=== PATIENT | male | born 1955 | race Caucasian/White ===

== ENCOUNTER 2019-12-05 16:50 | Emergency (ER) | payer OTHER ==
[~2019-12-05] VITALS: Ht 162.6 cm; Wt 79.4 kg
[2019-12-05] MEDS ORDERED: WARF4 PO (19:06)
== END 2019-12-05 19:08 | disposition home or self-care (01) ==
LOC: ER 16:50
DX: N99.89 Other postprocedural complications and disorders of genitourinary system (principal)
CPT/HCPCS: 36415; 99283

== ENCOUNTER 2019-12-09 23:27 | Emergency (ER) | payer OTHER ==
[~2019-12-09] VITALS: Ht 162.6 cm; Wt 77.1 kg
[~2019-12-09 23:27] MED LIST: WARF4 PO
[2019-12-09] MEDS ORDERED: INSULANPEN SC (23:37)
[2019-12-09] MEDS ORDERED: LIRA0.6P SC (23:38)
[2019-12-09] MEDS ORDERED: Novolin R100 UNIT/M SC (23:38)
[2019-12-09] MEDS ORDERED: CLOP75 PO (23:41)
[2019-12-09] MEDS ORDERED: CLOBET30L TOP (23:41)
[2019-12-09] MEDS ORDERED: WARF2.5 PO (23:42)
[2019-12-09] MEDS ORDERED: PREG100 PO (23:43)
[2019-12-09] MEDS ORDERED: FURO40 PO (23:43)
[2019-12-09] MEDS ORDERED: ENAL10 PO (23:43)
[2019-12-09] MEDS ORDERED: POTA10T PO (23:43)
[2019-12-09] MEDS ORDERED: MIRALAX17 G1 PO (23:44)
[2019-12-09] MEDS ORDERED: METF500C PO (23:44)
[2019-12-09] MEDS ORDERED: CARV6.25 PO (23:45)
[2019-12-09] MEDS ORDERED: ATOR20 PO (23:45)
[2019-12-09] MEDS ORDERED: ACET325 PO (23:46)
[2019-12-09] MEDS ORDERED: CITA20 PO (23:46)
[2019-12-09] MEDS ORDERED: NITR.4SL SL (23:46)
== END 2019-12-10 01:30 | disposition home or self-care (01) ==
LOC: ER 23:27
DX: N48.5 Ulcer of penis (principal); Z88.8 Allergy status to other drugs, medicaments and biological substances; Z79.899 Other long term (current) drug therapy; Z79.4 Long term (current) use of insulin; Z79.01 Long term (current) use of anticoagulants; E11.9 Type 2 diabetes mellitus without complications; I10 Essential (primary) hypertension; F32.9 Major depressive disorder, single episode, unspecified
CPT/HCPCS: 99283

== ENCOUNTER 2019-12-20 18:23 | Emergency (ER) | payer OTHER ==
[~2019-12-20] VITALS: Ht 172.7 cm; Wt 81.7 kg
[~2019-12-20 18:23] MED LIST changes: +ACET325 PO; +ATOR20 PO; +CARV6.25 PO; +CITA20 PO; +CLOBET30L TOP; +CLOP75 PO; +ENAL10 PO; +FURO40 PO; +INSULANPEN SC; +LIRA0.6P SC; +METF500C PO; +MIRALAX17 G1 PO; +NITR.4SL SL; +Novolin R100 UNIT/M SC; +POTA10T PO; +PREG100 PO; +WARF2.5 PO
== END 2019-12-21 00:15 | disposition home or self-care (01) ==
LOC: ER 18:23
DX: R53.1 Weakness (principal); E11.9 Type 2 diabetes mellitus without complications; I10 Essential (primary) hypertension; F32.9 Major depressive disorder, single episode, unspecified; Z88.8 Allergy status to other drugs, medicaments and biological substances; Z79.4 Long term (current) use of insulin; Z79.899 Other long term (current) drug therapy; Z79.01 Long term (current) use of anticoagulants; Z79.84 Long term (current) use of oral hypoglycemic drugs; Z87.891 Personal history of nicotine dependence
CPT/HCPCS: 93005; 93010; 99284-25

== ENCOUNTER 2020-02-20 18:19 | Emergency (ER) | payer MEDICARE, OTHER ==
[~2020-02-20] VITALS: Ht 165.1 cm; Wt 72.6 kg
[~2020-02-20 18:19] MED LIST changes: -ACET325 PO; -ATOR20 PO; -CARV6.25 PO; -CITA20 PO; -CLOBET30L TOP; -CLOP75 PO; -ENAL10 PO; -FURO40 PO; -INSULANPEN SC; -LIRA0.6P SC; -METF500C PO; -MIRALAX17 G1 PO; -NITR.4SL SL; -Novolin R100 UNIT/M SC; -POTA10T PO; -PREG100 PO; -WARF2.5 PO
[2020-02-20 19:10] LABS: BASOPHILS ABSOLUTE AUTO 0.05 K/mm3 (0.00-0.23); BASOPHILS PERCENT AUTO 1 % (0-2); EOSINOPHILS ABSOLUTE AUTO 0.15 K/mm3 (0.00-0.68); EOSINOPHILS PERCENT AUTO 1 % (0-6); Hemoglobin 11.6 g/dL (13.5-17.5); IMMATURE GRAN ABSOLUTE AUTO 0.02 K/mm3 (0.00-0.10); IMMATURE GRAN PERCENT AUTO 0 % (0-1); LYMPHOCYTES ABSOLUTE AUTO 1.76 K/mm3 (0.84-5.20); LYMPHOCYTES PERCENT AUTO 17 % (21-46); MONOCYTES ABSOLUTE AUTO 0.86 K/mm3 (0.16-1.47); MONOCYTES PERCENT AUTO 8 % (4-13); Mean Corpuscular HGB 28.3 pg (26.0-34.0); Mean Corpuscular HGB Conc 32.2 g/dL (31.5-36.5); Mean Corpuscular Volume 88 fL (80-100); Mean Platelet Volume 10.4 fL (9.1-12.4); NEUTROPHILS ABSOLUTE AUTO 7.55 K/mm3 (1.96-9.15); NEUTROPHILS PERCENT AUTO 73 % (41-73); Platelet Count 395 K/mm3 (150-400); RDW Coefficient Variation 14.6 % (11.7-14.2); RDW Standard Deviation 47.1 fL (35.1-46.3); White Blood Cell Count 10.39 K/mm3 (4.00-11.30)
[2020-02-20 19:17] LABS: Source, Urine Catheter
[2020-02-20 19:19] LABS: Bilirubin, Urine Neg (Neg); Blood, Urine 3+ (Neg); Glucose Qualitative, Urine Neg (Neg); Ketones, Urine Neg (Neg); Leukocyte Esterase, Urine 3+ (Neg); Nitrite, Urine Pos (Neg); Protein, Urine 3+ (Neg); Specific Gravity, Urine 1.015 (1.003-1.022); Urobilinogen, Urine NORM (Normal)
[2020-02-20 19:23] LABS: Appearance, Urine Cloudy (Clear); Color, Urine Yellow (P-Yellow)
[2020-02-20 19:24] LABS: International Normalized Ratio 1.07; Prothrombin Time Results 11.4 Sec (9.7-11.5)
[2020-02-20 19:25] LABS: Bacteria Many /hpf; Squamous Epithelial Cells Few /hpf (Few); White Blood Cells, Urine TNTC /hpf (0-5)
[2020-02-20 19:35] LABS: Anion Gap 6 mmol/L (6-16); Blood Urea Nitrogen 16 mg/dL (8-24); Bun/Creatinine Ratio 21.3 (12.0-20.0); CO2, Blood 27 mmol/L (21-32); Calcium, Blood 9.4 mg/dL (8.5-10.1); Chloride, Blood 101 mmol/L (98-108); Creatinine, Blood 0.75 mg/dL (0.60-1.20); Glomerular Filtration Rate >60 (60-); Glucose, Blood 109 mg/dL (70-99); Potassium, Blood 4.5 mmol/L (3.5-5.5); Sodium, Blood 134 mmol/L (136-145); Troponin I <0.015 ng/mL (0.000-0.040)
[2020-02-20] MEDS ORDERED: CLOP75 PO (19:37)
[2020-02-20] MEDS ORDERED: ENAL10 PO (19:37)
[2020-02-20] MEDS ORDERED: FURO40 PO (19:37)
[2020-02-20] MEDS ORDERED: PREG100 PO (19:38)
[2020-02-20] MEDS ORDERED: POTA10T PO (19:38)
[2020-02-20] MEDS ORDERED: Metformin HCl1000 MG PO (19:39)
[2020-02-20] MEDS ORDERED: ATOR40TA PO (19:39)
[2020-02-20] MEDS ORDERED: CARV6.25 PO (19:40)
[2020-02-20] MEDS ORDERED: CITA20 PO (19:40)
[2020-02-20] MEDS ORDERED: WARF2.5 PO (19:42)
[2020-02-20] MEDS ORDERED: MIRALAX17 GM PO (19:43)
[2020-02-20] MEDS ORDERED: INSULANPEN SC (19:45)
[2020-02-20] MEDS ORDERED: LIRA0.6P SC (19:46)
[2020-02-20] MEDS ORDERED: NITR.4SL SL (19:46)
[2020-02-20] MEDS ORDERED: Humulin N100 UNIT/1 SC (19:46)
[2020-02-20] MEDS ORDERED: ACET325 PO (19:47)
[2020-02-20] MEDS ORDERED: Clotrimazole15 GM TOP (19:50)
[2020-02-20] MEDS ORDERED: LIDO5TO TOP (19:51)
[2020-02-20] MEDS ORDERED: CEFP200 PO (19:55)
== END 2020-02-20 21:00 | disposition home or self-care (01) ==
LOC: ER 18:19
PROVIDERS: Emergency Medicine
DX: N39.0 Urinary tract infection, site not specified (principal); I25.10 Atherosclerotic heart disease of native coronary artery without angina pectoris; I10 Essential (primary) hypertension; E78.5 Hyperlipidemia, unspecified; E11.9 Type 2 diabetes mellitus without complications; Z86.73 Personal history of transient ischemic attack (TIA), and cerebral infarction without residual deficits; Z79.899 Other long term (current) drug therapy; Z79.01 Long term (current) use of anticoagulants; Z79.4 Long term (current) use of insulin; Z79.02 Long term (current) use of antithrombotics/antiplatelets
CPT/HCPCS: 36415; 51702; 71045; 80048; 81001; 84484; 85025; 85610; 87086; 93005; 93010; 96365-59; 96375-59; 99285-25; J0696; J1170

== ENCOUNTER 2020-03-10 13:27 | Emergency (ER) | payer MEDICARE, OTHER ==
[~2020-03-10] VITALS: Ht 165.1 cm; Wt 63.5 kg
[~2020-03-10 13:27] MED LIST changes: +ACET325 PO; +ATOR40TA PO; +CARV6.25 PO; +CEFP200 PO; +CITA20 PO; +CLOP75 PO; +Clotrimazole15 GM TOP; +ENAL10 PO; +FURO40 PO; +Humulin N100 UNIT/1 SC; +INSULANPEN SC; +LIDO5TO TOP; +MIRALAX17 GM PO; +Metformin HCl1000 MG PO; +NITR.4SL SL; +POTA10T PO; +PREG100 PO; +WARF2.5 PO
[2020-03-10 14:14] LABS: BASOPHILS ABSOLUTE AUTO 0.06 K/mm3 (0.00-0.23); BASOPHILS PERCENT AUTO 1 % (0-2); EOSINOPHILS ABSOLUTE AUTO 0.14 K/mm3 (0.00-0.68); EOSINOPHILS PERCENT AUTO 1 % (0-6); Hematocrit 35.7 % (37.0-53.0); Hemoglobin 11.7 g/dL (13.5-17.5); IMMATURE GRAN ABSOLUTE AUTO 0.03 K/mm3 (0.00-0.10); IMMATURE GRAN PERCENT AUTO 0 % (0-1); LYMPHOCYTES ABSOLUTE AUTO 1.34 K/mm3 (0.84-5.20); LYMPHOCYTES PERCENT AUTO 10 % (21-46); MONOCYTES ABSOLUTE AUTO 1.21 K/mm3 (0.16-1.47); MONOCYTES PERCENT AUTO 9 % (4-13); Mean Corpuscular HGB 29.4 pg (26.0-34.0); Mean Corpuscular HGB Conc 32.8 g/dL (31.5-36.5); Mean Corpuscular Volume 90 fL (80-100); Mean Platelet Volume 10.4 fL (9.1-12.4); NEUTROPHILS ABSOLUTE AUTO 10.55 K/mm3 (1.96-9.15); NEUTROPHILS PERCENT AUTO 79 % (41-73); Platelet Count 386 K/mm3 (150-400); RDW Coefficient Variation 14.5 % (11.7-14.2); RDW Standard Deviation 47.6 fL (35.1-46.3); Red Blood Cell Count 3.98 M/mm3 (4.30-5.90); White Blood Cell Count 13.33 K/mm3 (4.00-11.30)
[2020-03-10 14:29] LABS: International Normalized Ratio 1.04; Prothrombin Time Results 11.1 Sec (9.7-11.5)
[2020-03-10 14:32] LABS: Alanine Aminotransfer (ALT/SGP 30 U/L (12-78); Albumin, Blood 3.7 g/dL (3.4-5.0); Albumin/Globulin Ratio 0.9 (0.8-1.8); Alk Phos 123 U/L (50-136); Anion Gap 8 mmol/L (6-16); Aspartate Aminotrans (AST/SGOT 21 U/L (12-37); Bilirubin, Total 0.4 mg/dL (0.1-1.0); Blood Urea Nitrogen 25 mg/dL (8-24); Bun/Creatinine Ratio 29.1 (12.0-20.0); CO2, Blood 27 mmol/L (21-32); Calcium, Blood 9.3 mg/dL (8.5-10.1); Chloride, Blood 100 mmol/L (98-108); Creatinine, Blood 0.86 mg/dL (0.60-1.20); Globulin, Blood 4.1 g/dL (2.2-4.0); Glomerular Filtration Rate >60 (60-); Glucose, Blood 126 mg/dL (70-99); Potassium, Blood 4.5 mmol/L (3.5-5.5); Sodium, Blood 135 mmol/L (136-145); Total Protein, Blood 7.8 g/dL (6.4-8.2)
[2020-03-10 15:14] LABS: Source, Urine Catheter
[2020-03-10 15:16] LABS: Bilirubin, Urine Neg (Neg); Blood, Urine 5+ (Neg); Glucose Qualitative, Urine Neg (Neg); Ketones, Urine Neg (Neg); Leukocyte Esterase, Urine 3+ (Neg); Nitrite, Urine Neg (Neg); Protein, Urine 2+ (Neg); Urobilinogen, Urine NORM (Normal)
[2020-03-10 15:20] LABS: Appearance, Urine Hazy (Clear); Color, Urine Yellow (P-Yellow)
[2020-03-10 15:22] LABS: Bacteria Mod /hpf; Mucus Light (0-Heavy); Red Blood Cells, Urine 50-100 /hpf (0-2); Squamous Epithelial Cells Few /hpf (Few)
[2020-03-10] MEDS ORDERED: KEFLEX500 MG PO (15:44)
== END 2020-03-10 16:08 | disposition home or self-care (01) ==
LOC: ER 13:27
PROVIDERS: Emergency Medicine
DX: N39.0 Urinary tract infection, site not specified (principal); T83.091A Other mechanical complication of indwelling urethral catheter, initial encounter; I25.10 Atherosclerotic heart disease of native coronary artery without angina pectoris; I10 Essential (primary) hypertension; E78.5 Hyperlipidemia, unspecified; E11.9 Type 2 diabetes mellitus without complications; F32.9 Major depressive disorder, single episode, unspecified; Z88.8 Allergy status to other drugs, medicaments and biological substances; Z79.899 Other long term (current) drug therapy; Z79.4 Long term (current) use of insulin; Z79.01 Long term (current) use of anticoagulants; Z87.891 Personal history of nicotine dependence
CPT/HCPCS: 36415; 51702; 80053; 81001; 85025; 85610; 87077; 87086; 87186; 96360-59; 99283-25; J7030

== ENCOUNTER 2020-03-12 08:15 | Observation (INO) | payer MEDICARE, OTHER ==
[~2020-03-12] VITALS: Ht 162.6 cm; Wt 64.7 kg
[~2020-03-12 08:15] MED LIST changes: +KEFLEX500 MG PO
[2020-03-12] MEDS ORDERED: CLOP75 PO (08:53)
[2020-03-12 09:26] LABS: BASOPHILS ABSOLUTE AUTO 0.04 K/mm3 (0.00-0.23); BASOPHILS PERCENT AUTO 1 % (0-2); EOSINOPHILS ABSOLUTE AUTO 0.14 K/mm3 (0.00-0.68); EOSINOPHILS PERCENT AUTO 2 % (0-6); Hematocrit 33.9 % (37.0-53.0); Hemoglobin 10.9 g/dL (13.5-17.5); IMMATURE GRAN ABSOLUTE AUTO 0.03 K/mm3 (0.00-0.10); IMMATURE GRAN PERCENT AUTO 0 % (0-1); LYMPHOCYTES PERCENT AUTO 18 % (21-46); MONOCYTES ABSOLUTE AUTO 0.79 K/mm3 (0.16-1.47); MONOCYTES PERCENT AUTO 9 % (4-13); Mean Corpuscular HGB 29.1 pg (26.0-34.0); Mean Corpuscular HGB Conc 32.2 g/dL (31.5-36.5); Mean Corpuscular Volume 91 fL (80-100); Mean Platelet Volume 10.3 fL (9.1-12.4); NEUTROPHILS PERCENT AUTO 71 % (41-73); Platelet Count 348 K/mm3 (150-400); RDW Coefficient Variation 14.6 % (11.7-14.2); RDW Standard Deviation 48.7 fL (35.1-46.3); Red Blood Cell Count 3.74 M/mm3 (4.30-5.90)
[2020-03-12 09:40] LABS: International Normalized Ratio 1.03
[2020-03-12 09:51] LABS: Alanine Aminotransfer (ALT/SGP 24 U/L (12-78); Albumin, Blood 3.4 g/dL (3.4-5.0); Albumin/Globulin Ratio 0.9 (0.8-1.8); Alk Phos 112 U/L (50-136); Anion Gap 6 mmol/L (6-16); Aspartate Aminotrans (AST/SGOT 19 U/L (12-37); Bilirubin, Total 0.5 mg/dL (0.1-1.0); Blood Urea Nitrogen 17 mg/dL (8-24); Bun/Creatinine Ratio 20.9 (12.0-20.0); CO2, Blood 27 mmol/L (21-32); Calcium, Blood 9.2 mg/dL (8.5-10.1); Chloride, Blood 104 mmol/L (98-108); Creatinine, Blood 0.81 mg/dL (0.60-1.20); Globulin, Blood 3.8 g/dL (2.2-4.0); Glomerular Filtration Rate >60 (60-); Glucose, Blood 81 mg/dL (70-99); Potassium, Blood 3.9 mmol/L (3.5-5.5); Sodium, Blood 137 mmol/L (136-145); Total Protein, Blood 7.2 g/dL (6.4-8.2)
[2020-03-12] MEDS ORDERED: LIRA0.6P SC (12:25)
[2020-03-12] MEDS ORDERED: CEPH500 PO (12:42)
[2020-03-12 15:41] LABS: Source, Urine Catheter
[2020-03-12 15:43] LABS: Bilirubin, Urine Neg (Neg); Blood, Urine 5+ (Neg); Glucose Qualitative, Urine Neg (Neg); Ketones, Urine Neg (Neg); Leukocyte Esterase, Urine 3+ (Neg); Nitrite, Urine Neg (Neg); Protein, Urine 3+ (Neg); Urobilinogen, Urine NORM (Normal)
[2020-03-12 15:59] LABS: Appearance, Urine Cloudy (Clear); Color, Urine Yellow (P-Yellow)
[2020-03-12 16:08] LABS: Red Blood Cells, Urine 25-50 /hpf (0-2); White Blood Cells, Urine 25-50 /hpf (0-5)
[2020-03-12 16:09] LABS: Bacteria Mod /hpf; Squamous Epithelial Cells Not Seen /hpf (Few)
--- NOTE | 2020-03-12 17:05 | NUR ---
MILLER CATHETER IN PLACE AT ADMISSION. EDUCATED PT THAT CATHETER NEEDED TO BE CHANGED PER POLICY AND UA SENT; VERBALIZED UNDERSTANDING AND GAVE VERBAL PERMISSION TO PROCEED. IS AWARE OF PROCEDURE. DOMO KLEIN I REMOVED 9 ML OF STERILE WATER FROM BALLOON AND REMOVED CATHETER WITHOUT INCIDENT. URINE IS CLOUDY YELLOW. THIS AUTHOR PLACED NEW 16 FR MILLER CATHETER IN STERILE FASHION WITHOUT INCIDENT, RECEIVED ~ 10 ML OF CLOUDY YELLOW URINE WHICH WAS SENT FOR A UA PER POLICY. MILLER SECURED WITH STAT-LOCK. PT TOLERATED WELL.
--- NOTE | 2020-03-12 18:02 | NUR ---
SHIFT SUMMARY: ASSUMED CARE OF PT UPON HIS ARRIVAL FROM ED AT 1240. ADMISSION ASSESSMENT COMPLETED. DENIES PAIN. NO S/S OF BLEEDING NOTED. A&O X 1, DOES NOT KNOW LOCATION OR DAY/DATE. LIVES AT [facility]. LUNGS CTAB, ON ROOM AIR. HAS NUMEROUS SCATTERED SCABS AND ABRASIONS ON ARMS AND LEGS. MILLER CATHETER CHANGED AND UA SENT. HAS FLAT AFFECT, POOR DENTITION, IS IGIUGIG. PLAN IS POSSIBLE D/C TOMORROW.
--- NOTE | 2020-03-13 02:20 | NUR ---
SHIFT SUMMARY PT WITH DX OF GI BLEED ASSISTED ON AND OFF THE COMMODE - NO NOTED S/S BLEEDING MILLER IN PLACE, VOICED LEAKAGE, PT WAS NOTED TO BE PULLING ON IT, INSTRUCTED NOT TO PULL ON FLOEY. MILLER REPOSITIONED AND IS DRAINING WELL. YELLOW URINF. AWAKE AT INTERVALS, PUSHING CALL LIGHT, BUT DENIED NEEDING ANYTHING WHEN STAFF CAME IN TO CHECK HIM. CALL LIGHT IN REACH. WILL CONTINUE TO ASSESS.
[2020-03-13 05:22] LABS: BASOPHILS ABSOLUTE AUTO 0.05 K/mm3 (0.00-0.23); BASOPHILS PERCENT AUTO 1 % (0-2); EOSINOPHILS ABSOLUTE AUTO 0.19 K/mm3 (0.00-0.68); EOSINOPHILS PERCENT AUTO 3 % (0-6); Hematocrit 33.8 % (37.0-53.0); IMMATURE GRAN ABSOLUTE AUTO 0.02 K/mm3 (0.00-0.10); IMMATURE GRAN PERCENT AUTO 0 % (0-1); LYMPHOCYTES ABSOLUTE AUTO 1.48 K/mm3 (0.84-5.20); LYMPHOCYTES PERCENT AUTO 20 % (21-46); MONOCYTES PERCENT AUTO 10 % (4-13); Mean Corpuscular HGB 29.3 pg (26.0-34.0); Mean Corpuscular HGB Conc 32.5 g/dL (31.5-36.5); Mean Corpuscular Volume 90 fL (80-100); Mean Platelet Volume 10.4 fL (9.1-12.4); NEUTROPHILS ABSOLUTE AUTO 4.87 K/mm3 (1.96-9.15); NEUTROPHILS PERCENT AUTO 67 % (41-73); Platelet Count 370 K/mm3 (150-400); RDW Coefficient Variation 14.4 % (11.7-14.2); RDW Standard Deviation 48.1 fL (35.1-46.3); Red Blood Cell Count 3.75 M/mm3 (4.30-5.90); White Blood Cell Count 7.31 K/mm3 (4.00-11.30)
[2020-03-13 05:44] LABS: Anion Gap 8 mmol/L (6-16); Blood Urea Nitrogen 13 mg/dL (8-24); Bun/Creatinine Ratio 17.6 (12.0-20.0); CO2, Blood 26 mmol/L (21-32); Calcium, Blood 9.2 mg/dL (8.5-10.1); Chloride, Blood 105 mmol/L (98-108); Creatinine, Blood 0.74 mg/dL (0.60-1.20); Free Thyroxine 1.14 ng/dL (0.70-1.60); Glomerular Filtration Rate >60 (60-); Glucose, Blood 95 mg/dL (70-99); Sodium, Blood 139 mmol/L (136-145)
[2020-03-13] MEDS ORDERED: ASPI81CH PO (10:55)
[2020-03-13] MEDS ORDERED: INSULANPEN SC (10:56)
--- NOTE | 2020-03-13 14:24 | NUR ---
PT DISCHARGED PT DISCHARGED WITH NO ACUTE CHANGES IN ASSESSMENT. DC PAPERWORK & INSTRUCTIONS SENT WITH PT IN BELONGING BAG. PT TRANSPORTED VIA WHEELCHAIR AND DRIVEN BACK TO [facility] VIA WHEELCHAIR VAN.
== END 2020-03-13 14:23 | disposition home or self-care (01) ==
LOC: ER 08:15 → MEDS 08:16 → ENPENDDIS 03-13 09:00 → MEDS 03-13 14:23
PROVIDERS: Emergency Medicine; ADMIT Internal Medicine
DX: G92 Toxic encephalopathy (principal); D64.9 Anemia, unspecified; F03.90 Unspecified dementia, unspecified severity, without behavioral disturbance, psychotic disturbance, mood disturbance, and anxiety; F32.9 Major depressive disorder, single episode, unspecified; I10 Essential (primary) hypertension; E11.9 Type 2 diabetes mellitus without complications; I25.10 Atherosclerotic heart disease of native coronary artery without angina pectoris; Z95.1 Presence of aortocoronary bypass graft; E78.5 Hyperlipidemia, unspecified; G62.9 Polyneuropathy, unspecified; Z95.2 Presence of prosthetic heart valve; Z79.899 Other long term (current) drug therapy; Z79.82 Long term (current) use of aspirin
CPT/HCPCS: 36415; 51702; 70450; 71045; 80048; 80053; 81001; 82947; 84439; 84443; 84481; 85025; 85610; 93005; 93010; 96361; 96374; 99285-25; A9270-GY; C9113; G0378; J7030

== ENCOUNTER 2020-03-15 12:41 | Emergency (ER) | payer MEDICARE, OTHER ==
[~2020-03-15] VITALS: Ht 172.7 cm; Wt 56.7 kg
[~2020-03-15 12:41] MED LIST changes: +ASPI81CH PO; +CEPH500 PO; +LIRA0.6P SC
== END 2020-03-15 15:35 | disposition home or self-care (01) ==
LOC: ER 12:41
DX: S09.90XA Unspecified injury of head, initial encounter (principal); S80.02XA Contusion of left knee, initial encounter; S40.011A Contusion of right shoulder, initial encounter; E11.9 Type 2 diabetes mellitus without complications; I10 Essential (primary) hypertension; F32.9 Major depressive disorder, single episode, unspecified; Z79.899 Other long term (current) drug therapy; Z79.82 Long term (current) use of aspirin; Z79.4 Long term (current) use of insulin; V94.0XXA Hitting object or bottom of body of water due to fall from watercraft, initial encounter
CPT/HCPCS: 70450; 72125; 73562-LT; 99284-25; A9270

== ENCOUNTER 2020-03-17 17:12 | Emergency (ER) | payer MEDICARE, OTHER ==
[~2020-03-17] VITALS: Ht 170.2 cm; Wt 77.1 kg
[2020-03-17 18:21] LABS: Source, Urine Catheter
[2020-03-17 18:28] LABS: Bilirubin, Urine Neg (Neg); Blood, Urine 4+ (Neg); Glucose Qualitative, Urine Neg (Neg); Ketones, Urine Neg (Neg); Leukocyte Esterase, Urine 3+ (Neg); Nitrite, Urine Neg (Neg); Protein, Urine 2+ (Neg); Urobilinogen, Urine NORM (Normal)
[2020-03-17 18:34] LABS: Appearance, Urine Hazy (Clear); Color, Urine Yellow (P-Yellow)
[2020-03-17 18:35] LABS: White Blood Cells, Urine TNTC /hpf (0-5)
[2020-03-17 18:36] LABS: Bacteria Many /hpf; Squamous Epithelial Cells Not Seen /hpf (Few)
== END 2020-03-17 19:08 | disposition home or self-care (01) ==
LOC: ER 17:12
PROVIDERS: Emergency Medicine
DX: T83.031A Leakage of indwelling urethral catheter, initial encounter (principal); R33.9 Retention of urine, unspecified; I25.10 Atherosclerotic heart disease of native coronary artery without angina pectoris; I10 Essential (primary) hypertension; E78.5 Hyperlipidemia, unspecified; E11.9 Type 2 diabetes mellitus without complications; F32.9 Major depressive disorder, single episode, unspecified; Z88.8 Allergy status to other drugs, medicaments and biological substances; Z79.899 Other long term (current) drug therapy; Z79.82 Long term (current) use of aspirin; Z79.4 Long term (current) use of insulin; Z86.73 Personal history of transient ischemic attack (TIA), and cerebral infarction without residual deficits; Z87.891 Personal history of nicotine dependence
CPT/HCPCS: 51702; 81001; 87077; 87086; 87186; 99283-25

== ENCOUNTER 2020-05-16 00:30 | Emergency (ER) | payer OTHER ==
[~2020-05-16] VITALS: Ht 162.6 cm; Wt 81.7 kg
[2020-05-16 01:24] LABS: Source, Urine Catheter
[2020-05-16 01:36] LABS: Bilirubin, Urine Neg (Neg); Blood, Urine 5+ (Neg); Glucose Qualitative, Urine Neg (Neg); Ketones, Urine Neg (Neg); Leukocyte Esterase, Urine 3+ (Neg); Nitrite, Urine Neg (Neg); Protein, Urine 2+ (Neg); Urobilinogen, Urine NORM (Normal)
[2020-05-16 01:40] LABS: Color, Urine Pale Yellow (P-Yellow)
[2020-05-16 01:41] LABS: Appearance, Urine Hazy (Clear)
[2020-05-16 01:42] LABS: Bacteria Mod /hpf; Red Blood Cells, Urine 50-100 /hpf (0-2); Squamous Epithelial Cells Not Seen /hpf (Few); White Blood Cells, Urine TNTC /hpf (0-5)
[2020-05-16 01:43] LABS: Amorphous Heavy (0-Heavy)
[2020-05-16] MEDS ORDERED: CEFP200 PO (01:51)
[2020-05-20] MEDS ORDERED: LEVO750 PO (13:44)
[2020-05-20] MEDS ORDERED: PENVK500 PO (13:45)
[2020-05-20] MEDS ORDERED: CEFP200 PO (13:46)
[2020-05-20] MEDS ORDERED: DOCU100 PO (15:33)
[2020-05-20] MEDS ORDERED: Adult Glycerin1 EACH PR (15:33)
== END 2020-05-16 02:22 | disposition home or self-care (01) ==
LOC: ER 00:30
PROVIDERS: Emergency Medicine
DX: N39.0 Urinary tract infection, site not specified (principal); Z88.8 Allergy status to other drugs, medicaments and biological substances; Z79.82 Long term (current) use of aspirin; Z79.4 Long term (current) use of insulin; Z79.2 Long term (current) use of antibiotics; Z79.899 Other long term (current) drug therapy
CPT/HCPCS: 51702; 81001; 87077; 87086; 87186; 99284-25; A9270-GY

== ENCOUNTER 2020-05-28 16:52 | Emergency (ER) | payer OTHER ==
[~2020-05-28] VITALS: Ht 162.6 cm; Wt 65.8 kg
[~2020-05-28 16:52] MED LIST changes: +Adult Glycerin1 EACH PR; +DOCU100 PO; +LEVO750 PO; +PENVK500 PO
[2020-05-28 18:26] LABS: BASOPHILS ABSOLUTE AUTO 0.05 K/mm3 (0.00-0.23); BASOPHILS PERCENT AUTO 1 % (0-2); EOSINOPHILS PERCENT AUTO 2 % (0-6); Hematocrit 37.3 % (37.0-53.0); Hemoglobin 11.9 g/dL (13.5-17.5); IMMATURE GRAN ABSOLUTE AUTO 0.02 K/mm3 (0.00-0.10); IMMATURE GRAN PERCENT AUTO 0 % (0-1); LYMPHOCYTES ABSOLUTE AUTO 1.86 K/mm3 (0.84-5.20); LYMPHOCYTES PERCENT AUTO 21 % (21-46); MONOCYTES ABSOLUTE AUTO 0.84 K/mm3 (0.16-1.47); MONOCYTES PERCENT AUTO 9 % (4-13); Mean Corpuscular HGB 29.8 pg (26.0-34.0); Mean Corpuscular HGB Conc 31.9 g/dL (31.5-36.5); Mean Corpuscular Volume 94 fL (80-100); Mean Platelet Volume 11.1 fL (9.1-12.4); NEUTROPHILS ABSOLUTE AUTO 5.96 K/mm3 (1.96-9.15); NEUTROPHILS PERCENT AUTO 67 % (41-73); Platelet Count 292 K/mm3 (150-400); RDW Coefficient Variation 12.1 % (11.7-14.2); RDW Standard Deviation 42.1 fL (35.1-46.3); Red Blood Cell Count 3.99 M/mm3 (4.30-5.90); White Blood Cell Count 8.93 K/mm3 (4.00-11.30)
[2020-05-28 18:55] LABS: Alanine Aminotransfer (ALT/SGP 21 U/L (12-78); Albumin, Blood 3.7 g/dL (3.4-5.0); Albumin/Globulin Ratio 0.9 (0.8-1.8); Alk Phos 104 U/L (50-136); Anion Gap 4 mmol/L (6-16); Aspartate Aminotrans (AST/SGOT 14 U/L (12-37); Bilirubin, Total 0.1 mg/dL (0.1-1.0); Blood Urea Nitrogen 27 mg/dL (8-24); Bun/Creatinine Ratio 33.5 (12.0-20.0); CO2, Blood 24 mmol/L (21-32); Calcium, Blood 9.3 mg/dL (8.5-10.1); Chloride, Blood 106 mmol/L (98-108); Creatinine, Blood 0.81 mg/dL (0.60-1.20); Globulin, Blood 3.9 g/dL (2.2-4.0); Glomerular Filtration Rate >60 (60-); Glucose, Blood 152 mg/dL (70-99); Potassium, Blood 4.9 mmol/L (3.5-5.5); Sodium, Blood 134 mmol/L (136-145); Total Protein, Blood 7.6 g/dL (6.4-8.2)
[2020-05-28 23:32] LABS: Source, Urine Catheter
[2020-05-28 23:48] LABS: Bilirubin, Urine Neg (Neg); Blood, Urine 4+ (Neg); Glucose Qualitative, Urine Neg (Neg); Ketones, Urine Neg (Neg); Leukocyte Esterase, Urine 3+ (Neg); Nitrite, Urine Neg (Neg); Protein, Urine 2+ (Neg); Urobilinogen, Urine NORM (Normal)
[2020-05-28 23:49] LABS: Appearance, Urine Clear (Clear); Color, Urine Yellow (P-Yellow)
[2020-05-28 23:50] LABS: Amorphous Light (0-Heavy); Bacteria Many /hpf; Squamous Epithelial Cells Not Seen /hpf (Few)
[2020-05-29] MEDS ORDERED: LEVO750 PO (00:03)
[2020-05-29] MEDS ORDERED: Veetids 500500 MG PO (00:03)
== END 2020-05-29 00:36 | disposition home or self-care (01) ==
LOC: ER 16:52
PROVIDERS: Physician Assistant
DX: N39.0 Urinary tract infection, site not specified (principal); Z88.8 Allergy status to other drugs, medicaments and biological substances; Z79.899 Other long term (current) drug therapy; Z79.82 Long term (current) use of aspirin; Z79.4 Long term (current) use of insulin; E11.9 Type 2 diabetes mellitus without complications; I10 Essential (primary) hypertension; F32.9 Major depressive disorder, single episode, unspecified; Z87.891 Personal history of nicotine dependence
CPT/HCPCS: 80053; 81001; 85025; 87077; 87086; 87186; 99283

== ENCOUNTER 2020-06-14 15:33 | Emergency (ER) | payer OTHER ==
[~2020-06-14] VITALS: Ht 162.6 cm; Wt 81.7 kg
[~2020-06-14 15:33] MED LIST changes: +Veetids 500500 MG PO
[2020-06-14 17:03] LABS: Source, Urine Catheter
[2020-06-14 17:37] LABS: Bilirubin, Urine Neg (Neg); Blood, Urine 5+ (Neg); Glucose Qualitative, Urine 4+ (Neg); Ketones, Urine Neg (Neg); Leukocyte Esterase, Urine 2+ (Neg); Nitrite, Urine Neg (Neg); Protein, Urine Neg (Neg); Specific Gravity, Urine 1.015 (1.003-1.022); Urobilinogen, Urine NORM (Normal)
[2020-06-14 17:42] LABS: Appearance, Urine Hazy (Clear); Color, Urine Yellow (P-Yellow)
[2020-06-14 17:44] LABS: Red Blood Cells, Urine 50-100 /hpf (0-2); Squamous Epithelial Cells Not Seen /hpf (Few)
[2020-06-14 17:45] LABS: Bacteria Rare /hpf
== END 2020-06-14 17:10 | disposition home or self-care (01) ==
LOC: ER 15:33
PROVIDERS: Physician Assistant
DX: T83.028A Displacement of other urinary catheter, initial encounter (principal); E11.9 Type 2 diabetes mellitus without complications; I10 Essential (primary) hypertension; F32.9 Major depressive disorder, single episode, unspecified; Z88.8 Allergy status to other drugs, medicaments and biological substances; Z79.4 Long term (current) use of insulin; Z95.1 Presence of aortocoronary bypass graft; Z79.82 Long term (current) use of aspirin; Z79.899 Other long term (current) drug therapy
CPT/HCPCS: 51702; 81001; 87077; 87086; 87186; 99283-25

== ENCOUNTER 2020-06-20 15:46 | Emergency (ER) | payer OTHER ==
[~2020-06-20] VITALS: Ht 162.6 cm; Wt 63.5 kg
== END 2020-06-20 22:35 | disposition home or self-care (01) ==
LOC: ER 15:46
DX: M54.9 Dorsalgia, unspecified (principal); I10 Essential (primary) hypertension; E78.5 Hyperlipidemia, unspecified; E11.9 Type 2 diabetes mellitus without complications; I25.810 Atherosclerosis of coronary artery bypass graft(s) without angina pectoris; Z88.8 Allergy status to other drugs, medicaments and biological substances; Z79.01 Long term (current) use of anticoagulants; Z86.73 Personal history of transient ischemic attack (TIA), and cerebral infarction without residual deficits; Z95.1 Presence of aortocoronary bypass graft; Z79.899 Other long term (current) drug therapy; Z79.82 Long term (current) use of aspirin; Z87.891 Personal history of nicotine dependence; W06.XXXA Fall from bed, initial encounter
CPT/HCPCS: 72100; 99283-25

== ENCOUNTER 2020-07-02 18:18 | Inpatient (IN) | payer OTHER ==
[~2020-07-02] VITALS: Ht 160 cm; Wt 66.6 kg
[~2020-07-02 18:18] MED LIST changes: -ASPI81CH PO; +Aspirin EC81 MG PO; +BASAGLAR K100 UNIT/1 SC
[2020-07-02 18:46] LABS: BASOPHILS ABSOLUTE AUTO 0.02 K/mm3 (0.00-0.23); BASOPHILS PERCENT AUTO 0 % (0-2); EOSINOPHILS PERCENT AUTO 0 % (0-6); Hematocrit 30.1 % (37.0-53.0); IMMATURE GRAN ABSOLUTE AUTO 0.02 K/mm3 (0.00-0.10); IMMATURE GRAN PERCENT AUTO 0 % (0-1); LYMPHOCYTES ABSOLUTE AUTO 0.27 K/mm3 (0.84-5.20); LYMPHOCYTES PERCENT AUTO 4 % (21-46); MONOCYTES ABSOLUTE AUTO 0.13 K/mm3 (0.16-1.47); MONOCYTES PERCENT AUTO 2 % (4-13); Mean Corpuscular HGB 30.1 pg (26.0-34.0); Mean Corpuscular HGB Conc 33.2 g/dL (31.5-36.5); Mean Corpuscular Volume 91 fL (80-100); Mean Platelet Volume 10.5 fL (9.1-12.4); NEUTROPHILS ABSOLUTE AUTO 5.81 K/mm3 (1.96-9.15); NEUTROPHILS PERCENT AUTO 93 % (41-73); Platelet Count 202 K/mm3 (150-400); RDW Coefficient Variation 12.3 % (11.7-14.2); RDW Standard Deviation 40.6 fL (35.1-46.3); Red Blood Cell Count 3.32 M/mm3 (4.30-5.90); White Blood Cell Count 6.25 K/mm3 (4.00-11.30)
[2020-07-02 18:57] LABS: Source, Urine Catheter
[2020-07-02 19:18] LABS: Appearance, Urine Hazy (Clear); Bilirubin, Urine Neg (Neg); Blood, Urine 5+ (Neg); Color, Urine Yellow (P-Yellow); Glucose Qualitative, Urine 2+ (Neg); Ketones, Urine Neg (Neg); Leukocyte Esterase, Urine 3+ (Neg); Nitrite, Urine Pos (Neg); Protein, Urine 3+ (Neg); Urobilinogen, Urine NORM (Normal)
[2020-07-02 19:24] LABS: Magnesium, Blood 1.9 mg/dL (1.6-2.4)
[2020-07-02 19:26] LABS: Alanine Aminotransfer (ALT/SGP 28 U/L (12-78); Albumin/Globulin Ratio 0.9 (0.8-1.8); Alk Phos 107 U/L (50-136); Anion Gap 7 mmol/L (6-16); Aspartate Aminotrans (AST/SGOT 23 U/L (12-37); Bilirubin, Total 0.4 mg/dL (0.1-1.0); Blood Urea Nitrogen 34 mg/dL (8-24); Bun/Creatinine Ratio 33.7 (12.0-20.0); CO2, Blood 21 mmol/L (21-32); Calcium, Blood 8.2 mg/dL (8.5-10.1); Chloride, Blood 109 mmol/L (98-108); Creatinine, Blood 1.01 mg/dL (0.60-1.20); Globulin, Blood 3.3 g/dL (2.2-4.0); Glomerular Filtration Rate >60 (60-); Glucose, Blood 199 mg/dL (70-99); Potassium, Blood 4.8 mmol/L (3.5-5.5); Sodium, Blood 137 mmol/L (136-145); Total Protein, Blood 6.3 g/dL (6.4-8.2)
[2020-07-02 19:52] LABS: Bacteria Many /hpf; Red Blood Cells, Urine 25-50 /hpf (0-2); White Blood Cells, Urine 25-50 /hpf (0-5)
[2020-07-02 19:53] LABS: Squamous Epithelial Cells Not Seen /hpf (Few)
--- NOTE | 2020-07-02 23:36 | NUR ---
PT UP TO ICU 11 FROM ED VIA GURNEY. PT ALTERED, NOT FOLLOWING COMMANDS, ANSWERING QUESTIONS, IS UNABLE TO TELL ME HIS NAME AND . FEBRILE. TEMP IS 100.4. LUNG SOUNDS CLEAR AND SPO2 100% ON 2LNC. SBP IS IN THE 80S. HR IS IN 100S. ON LEVOPHED AT 2MCG. MILLER IN PLACE, DRIED BLOOD AROUND PENIS AND ON LEG. WHEN MILLER WAS REPLACED IN ED BALLOON WAS STILL PARTIALLY INFLATED. MILLER REPLACED. STILL BLEEDING A LITTLE BUT URINE IN BAG IS YELLOW. PT HAS 16G IN LFA AND 18G IN RFA. BOTH IVS ARE PATENT, GOT BLOOD RETURN AND FLUSHED WELL. LEVOPHED AND NS INFUSING IN RFA. SKIN IS CLEAR. COCCYX IS SLIGHTLY RED. PT CAME UP WITH A SMALL SMEAR BM. WILL CONTINUE TO MONITOR
[2020-07-02 23:55] LABS: U Amphetamine Screen Not Detected; U Barbituate Screen Not Detected; U Benzodiazapine Screen Not Detected; U Buprenorphine Screen Not Detected; U Cannabinoids Screen Not Detected; U Cocaine Screen Not Detected; U Methadone Screen Not Detected; U Methamphetamine Screen Not Detected; U Opiates Screen Not Detected; U Oxycodone Screen Not Detected; U Phencyclidine Screen Not Detected; U Propoxyphene Screen Not Detected
[2020-07-03 01:00] LABS: Adenovirus Not Detected (NOT DETECT); Bordetella pertussis Not Detected (NOT DETECT); Chlamydophila pneumoniae Not Detected (NOT DETECT); Coronavirus 229E Not Detected (NOT DETECT); Coronavirus HKU1 Not Detected (NOT DETECT); Coronavirus NL63 Not Detected (NOT DETECT); Coronavirus OC43 Not Detected (NOT DETECT); Human Metapneumovirus Not Detected (NOT DETECT); Human Rhinovirus/Enterovirus Not Detected (NOT DETECT); Influenza A/2009-H1 Not Detected (NOT DETECT); Influenza A/H1 Not Detected (NOT DETECT); Influenza A/H3 Not Detected (NOT DETECT); Influenza B Not Detected (NOT DETECT); Mycoplasma pneumoniae Not Detected (NOT DETECT); Parainfluenza Virus 1 Not Detected (NOT DETECT); Parainfluenza Virus 2 Not Detected (NOT DETECT); Parainfluenza Virus 3 Not Detected (NOT DETECT); Parainfluenza Virus 4 Not Detected (NOT DETECT); Respiratory Syncytial Virus Not Detected (NOT DETECT); SARS-Cov-2 (COVID-19), BioFire Not Detected (NOT DETECT)
--- NOTE | 2020-07-03 02:28 | NUR ---
R FA IV ASSESSED MULTIPLE TIMES. PATENT AND WAS DRAWING BACK WELL. CURRENTLY NO LONGER DRAWING BACK. SITE IS NOT RED OR SWOLLEN. WILL CONTINUE TO MONITOR
[2020-07-03 03:48] LABS: BASOPHILS ABSOLUTE AUTO 0.04 K/mm3 (0.00-0.23); BASOPHILS PERCENT AUTO 0 % (0-2); EOSINOPHILS PERCENT AUTO 0 % (0-6); Hematocrit 29.8 % (37.0-53.0); Hemoglobin 9.7 g/dL (13.5-17.5); IMMATURE GRAN PERCENT AUTO 1 % (0-1); LYMPHOCYTES ABSOLUTE AUTO 0.29 K/mm3 (0.84-5.20); LYMPHOCYTES PERCENT AUTO 2 % (21-46); MONOCYTES PERCENT AUTO 5 % (4-13); Mean Corpuscular HGB 30.5 pg (26.0-34.0); Mean Corpuscular HGB Conc 32.6 g/dL (31.5-36.5); Mean Corpuscular Volume 94 fL (80-100); NEUTROPHILS ABSOLUTE AUTO 13.95 K/mm3 (1.96-9.15); NEUTROPHILS PERCENT AUTO 93 % (41-73); Platelet Count 212 K/mm3 (150-400); RDW Coefficient Variation 12.7 % (11.7-14.2); RDW Standard Deviation 43.5 fL (35.1-46.3); Red Blood Cell Count 3.18 M/mm3 (4.30-5.90); White Blood Cell Count 15.08 K/mm3 (4.00-11.30)
[2020-07-03 04:09] LABS: Alanine Aminotransfer (ALT/SGP 69 U/L (12-78); Albumin, Blood 2.6 g/dL (3.4-5.0); Albumin/Globulin Ratio 0.8 (0.8-1.8); Alk Phos 129 U/L (50-136); Anion Gap 5 mmol/L (6-16); Aspartate Aminotrans (AST/SGOT 118 U/L (12-37); Bilirubin, Total 0.4 mg/dL (0.1-1.0); Blood Urea Nitrogen 31 mg/dL (8-24); Bun/Creatinine Ratio 27.7 (12.0-20.0); CO2, Blood 23 mmol/L (21-32); Calcium, Blood 8.1 mg/dL (8.5-10.1); Chloride, Blood 109 mmol/L (98-108); Creatinine, Blood 1.12 mg/dL (0.60-1.20); Globulin, Blood 3.3 g/dL (2.2-4.0); Glomerular Filtration Rate >60 (60-); Glucose, Blood 257 mg/dL (70-99); Potassium, Blood 5.2 mmol/L (3.5-5.5); Sodium, Blood 137 mmol/L (136-145); Total Protein, Blood 5.9 g/dL (6.4-8.2)
--- NOTE | 2020-07-03 05:40 | NUR ---
SHIFT SUMMARY: PT MENTATION BEGINNING TO IMPROVE. IS ABLE TO ANSWER BASIC QUESTIONS. AFEBRILE NOW. IS ABLE TO MOVE ALL 4 EXTREMETIES. IN SR WITH A 1ST DEGREE HB. SBP 90-110S. ON LEVOPHED AT 4 MCG. LUNG SOUNDS CLEAR. SPO2 >90% ON 2LNC. MILLER REMAINS IN PLACE, PATENT, AND DRAINING. NO LONGER ANY S/S OF BLEEDING FROM PENIS. PT DOES C/O IT BEING PAINFUL. (SEE PREVIOUS NN). 2 PIVS-16G LFA, 18G RFA. LEVOPHED AND NS INFUSING INTO LFA IV. R FA IV IS STILL PATENT. HOWEVER IT NO LONGER DRAWS BACK AND PT C/O OF SOME PAIN AT THE INSERTION SITE. NO REDNESS, NOT SWOLLEN, NO S/S OF INFILTRATION, HOWEVER STILL SWITCHED INFUSING SITE. LFA IV PATENT AND DRAWS BACK WELL-LEVOPHED AT 4MCG AND NS AT 100MLS/HR. WILL PASS REPORT TO ONCOMING SHIFT
--- NOTE | 2020-07-03 08:18 | NUR ---
UPDATED DR. WILLSON ON PATIENT STATUS. INFORMED THAT NPO AND NS AT 100 MLS X 2 L COMPLETE. INFORMED THAT NO HISTORY OF DM SEEN AND LANTUS ORDERED. LAST BS 257. ORDER TO DC LANTUS AND ORDER Q6H REGULAR SS INSULIN. ORDER FOR MAINTENANCE FLUIDS RECEIVED. INFORMED THAT PATIENT HAS NOT HAD HEAD CT. INFORMED THAT LEVOPHED INFUSING AT LOW RATE INTO PERIPHERAL IV- 16G AND BLOOD DRAWING BACK.
--- NOTE | 2020-07-03 08:42 | NUR ---
DR. WILLSON CAME TO SEE PATIENT. STATED IT WAS OKAY TO KEEP LOW DOSE LEVOPHED INFUSING INTO PERIPHERAL IV. ORDER FOR SWALLOW EVAL OBTAINED.
--- NOTE | 2020-07-03 09:02 | NUR ---
INITIAL ASSESSMENT PATIENT SLEEPING SOUNDLY IN BED UPON ENTERING ROOM. PATIENT RESPONDS TO VERBAL STIMULI. PATIENT HAS FLAT AFFECT. PATIENT CONFUSED. PATIENT DOES FOLLOW SOME VERY SIMPLE COMMANDS SUCH "OPEN YOUR MOUTH". PATIENT DOES SOMETIMES SAY "OK" WHEN NURSE EXPLAINING NURSING CARE. PATIENT KEEPS ARMS CONTRACTED AT CHEST BUT IS ABLE TO EXTEND THEM. PATIENT WEAK BUT ABLE TO MOVE ALL EXTREMITIES WEAKLY. BASELINE NEURO UNKNOWN. PATIENT DOES NOT HAVE ANY SIGNS OF PAIN OR DISCOMFORT. PATIENT AFEBRILE. PATIENT SATTING 90% AND GREATER ON RA. LUNGS CLEAR IN UPPER LOBES AND DIMINISHED IN LOWER LOBES. NO COUGH NOTED. PATIENT IN SR/ SB WITH FIRST DEGREE HB AND BBB. HR 50S TO 60S. BP STABLE ON LEVOPHED. DATE OF LAST BM UNKNOWN. MILLER IN PLACE, DRAINING YELLOW COLORED URINE. PATIENT HAS CHRONIC MILLER AT BASELINE. SMALL AMOUNT OF BLEEDING NOTED FROM URETHRA. CHANGES TO MEATUS FROM CHRONIC MILLER USE. COCCYX REDDENED. PATIENT BEING REPOSITIONED Q2H AND PRN. NS INFUSING AT 100 MLS/ HOUR. LEVOPHED INFUSING AT 6 MCG/ MINUTE. LEVOPHED INFUSING INTO 16 G IV IN L FA- IV IS DRAWING BACK BLOOD AND DR. WILLSON IS OKAY WITH USING PRESSOR IN PERIPHERAL SITE. PATIENT ON Q6H BS CHECKS. BS THIS AM OF 177; NO COVERAGE NEEDED OR GIVEN. PATIENT APPEARS COMFORTABLE AT THIS TIME. BED LOW, CALL LIGHT IN REACH. WILL CONTINUE TO MONITOR PATIENT FREQUENTLY THROUGHOUT SHIFT.
--- NOTE | 2020-07-03 10:07 | NUR ---
SPOKE TO RAMÍREZ GREER ABOUT PATIENT. RAMÍREZ GREER STAFF SAY THAT PATIENT IS CONFUSED AT BASELINE. THEY STATED THAT HE SOMETIMES KNOWS HIS NAME AND SOMETIMES DOESN'T. THEY STATE THAT HE RARELY FORMS SENTENCES AND USUALLY ONLY SPEAKS IN WORDS. THEY STATE THAT HE SOMETIMES PULLS AT HIS MILLER. THEY STATE THAT HE GETS AROUND IN A WHEELCHAIR AND HAS TO HAVE HELP TO TRANSFER IN AND OUT OF IT. THEY SAY THAT PATIENT SLEEPS ON A MATTRESS ON THE GROUND HE ALWAYS TRIES TO SCOOT OUT OF BED. THEY STATES THAT HE ASKS FOR HIS AND DAUGHTER A LOT. THEY STATE THAT HE WANDERS AROUND A LOT IN THE FACILITY WITH HIS WHEELCHAIR "TRYING TO ESCAPE". NURSE ASKED FOR MEDICATION LIST AND HISTORY TO BE FAXED TO [facility].
--- NOTE | 2020-07-03 12:00 | NUR ---
PATIENT NEURO STATUS HAS IMPROVED SOME. PATIENT NOT LETHARGIC THIS AM. PATIENT NOW MORE ALERT AND ABLE TO ANSWER SELF, TOWN THAT HE LIVES IN AND FOLLOWING SIMPLE COMMANDS. PATIENT HAS TEMP OF 99.3 DEGREES FAHRENHEIT. PATIENT REMAINS SATTING 90% AND GREATER ON RA. HR 50S TO 70S. BP STABLE ON LEVOPHED. LEVO CURRENTLY AT 3 MCG/ MINUTE. SPEECH ORDERED PUREE DIET. PATIENT TOLERATING WELL WITH FEEDING ASSISTANCE. BS 198; NO COVERAGE INDICATED. NO OTHER ACUTE CHANGES TO NOTE ON AT THIS TIME. WILL CONTINUE TO MONITOR.
[2020-07-03] MEDS ORDERED: ASPI81CH PO (13:05)
--- NOTE | 2020-07-03 15:06 | NUR ---
INFORMED DR. WILLSON THAT PATIENT'S MED REC UPDATED. INFORMED THAT PATIENT IS TOLERATING PUREE DIET WELL.
--- NOTE | 2020-07-03 16:16 | NUR ---
PATIENT RESTING QUIETLY IN BED, WATCHING TV. PATIENT HAS NO COMPLAINTS AT THIS TIME. PATIENT HAS TEMP OF 99.5 DEGREES FAHRENHEIT. LEVOPHED AT 1 MCG/ MINUTE. BS OF 178; COVERAGE GIVEN. NO OTHER ACUTE CHANGES TO NOTE ON AT THIS TIME. WILL CONTINUE TO MONITOR.
--- NOTE | 2020-07-03 17:13 | NUR ---
SHIFT SUMMARY PATIENT HAD A GOOD DAY TODAY. PATIENT NEURO STATUS HAS IMPROVED. PATIENT NOW STATING SENTENCES. PATIENT CONTINUES TO BE CONFUSED AND ONLY ALERT TO SELF AND THE TOWN HE LIVES IN. PATIENT IS FEEDING HIMSELF DINNER AT THIS TIME. PATIENT LESS LETHARGIC THAN THIS AM. PATIENT DID NOT HAVE ANY COMPLAINTS OF PAIN. PATIENT HAD TMAX OF 99.7 DEGREES FAHRENHEIT. PATIENT REMAINED SATTING 90% AND GREATER ON RA. PATIENT REMAINS IN FIRST DEGREE AV BLOCK AND BBB, HR 50S TO 70S. BP REMAINED STABLE ON LEVOPHED. LEVOPHED IS ON STANDBY AT THIS TIME. PATIENT DID NOT HAVE BM THIS SHIFT. PATIENT INCREASED FROM NPO TO PUREE THIS SHIFT AND REMAINS TOLERATING WELL. PATIENT HAD ADEQUATE AMOUNT OF YELLOW URINE OUT THIS SHIFT. NO CHANGE IN SKIN. PATIENT REPOSITIONED THROUGHOUT SHIFT. LEVOPHED ON SB AT THIS TIME. NS INFUSING AT 100 MLS/ HOUR. PATIENT HAS NO COMPLAINTS AT THIS TIME. BED LOW, CALL LIGHT IN REACH. REPORT WILL BE GIVEN TO ONCOMING PRODUCER ARBORIST MANAGER NURSE SHORTLY.
--- NOTE | 2020-07-03 20:39 | NUR ---
ASSUMED CARE: PT AWAKE IN BED. ANSWERS QUESTIONS. IS PLEASANT AND COOPERATIVE. MENTATION ROQUE HE IS AT BASELINE. FEBRILE AT 99.7-100. IN A 1ST HB. HR 50-70. SBP 120-140. LEVOPHED ON SB. SPO2 >90% ON RA. ON PUREED DIET AND THIN LIQUIDS. GAVE DIET PEPSI TONIGHT. DOING WELL WITH THAT. PT HAS MILLER IN PLACE. AT BASELINE PT HAS A CHRONIC MILLER. PG TO BRENDON AND 2 PIV IN LFA/RFA. PT HAS NS RUNNING AT 100MLS/HR. WILL CONTINUE TO MONITOR
--- NOTE | 2020-07-03 23:30 | NUR ---
pt c/o feeling nauseous. zofran given per mar. pt did end up vomiting. linens changed.
--- NOTE | 2020-07-04 01:59 | NUR ---
pt now has a weak cough and is having difficulties clearing secretions. lung sounds coarse in upper left. pt currently sitting upright, spo2 >90% on ra. will continue to monitor
[2020-07-04 04:22] LABS: BASOPHILS ABSOLUTE AUTO 0.03 K/mm3 (0.00-0.23); BASOPHILS PERCENT AUTO 0 % (0-2); EOSINOPHILS ABSOLUTE AUTO 0.01 K/mm3 (0.00-0.68); EOSINOPHILS PERCENT AUTO 0 % (0-6); Hematocrit 30.9 % (37.0-53.0); Hemoglobin 10.1 g/dL (13.5-17.5); IMMATURE GRAN ABSOLUTE AUTO 0.06 K/mm3 (0.00-0.10); IMMATURE GRAN PERCENT AUTO 1 % (0-1); LYMPHOCYTES ABSOLUTE AUTO 0.49 K/mm3 (0.84-5.20); LYMPHOCYTES PERCENT AUTO 6 % (21-46); MONOCYTES ABSOLUTE AUTO 0.73 K/mm3 (0.16-1.47); MONOCYTES PERCENT AUTO 9 % (4-13); Mean Corpuscular HGB 30.2 pg (26.0-34.0); Mean Corpuscular HGB Conc 32.7 g/dL (31.5-36.5); Mean Corpuscular Volume 93 fL (80-100); Mean Platelet Volume 11.8 fL (9.1-12.4); NEUTROPHILS ABSOLUTE AUTO 7.23 K/mm3 (1.96-9.15); NEUTROPHILS PERCENT AUTO 85 % (41-73); Platelet Count 189 K/mm3 (150-400); RDW Coefficient Variation 12.5 % (11.7-14.2); RDW Standard Deviation 42.5 fL (35.1-46.3); Red Blood Cell Count 3.34 M/mm3 (4.30-5.90); White Blood Cell Count 8.55 K/mm3 (4.00-11.30)
[2020-07-04 04:57] LABS: Alanine Aminotransfer (ALT/SGP 64 U/L (12-78); Albumin, Blood 2.6 g/dL (3.4-5.0); Albumin/Globulin Ratio 0.8 (0.8-1.8); Alk Phos 151 U/L (50-136); Anion Gap 5 mmol/L (6-16); Aspartate Aminotrans (AST/SGOT 88 U/L (12-37); Bilirubin, Total 0.3 mg/dL (0.1-1.0); Blood Urea Nitrogen 23 mg/dL (8-24); CO2, Blood 23 mmol/L (21-32); Calcium, Blood 8.3 mg/dL (8.5-10.1); Chloride, Blood 108 mmol/L (98-108); Creatinine, Blood 0.89 mg/dL (0.60-1.20); Globulin, Blood 3.4 g/dL (2.2-4.0); Glomerular Filtration Rate >60 (60-); Glucose, Blood 189 mg/dL (70-99); Magnesium, Blood 2.1 mg/dL (1.6-2.4); Potassium, Blood 4.3 mmol/L (3.5-5.5); Sodium, Blood 136 mmol/L (136-145)
--- NOTE | 2020-07-04 06:03 | NUR ---
SHIFT SUMMARY: NO ACUTE CHANGES T/O SHIFT. LEVOPHED REMAINS OFF. SBP/VSS STABLE. MENTATION IMPROVING. LUNG SOUNDS CLEAR NOW. PT WAS ABLE TO CLEAR SECRETIONS. HAD SEVERAL SMALL SMEARS DURING THE NIGHT. NO FORMED BMS. MILLER IN PLACE DRAINING CLEAR YELLOW URINE. WILL PASS REPORT TO ONCOMING RN
--- NOTE | 2020-07-04 08:00 | NUR ---
INITIAL ASSESSMENT PATIENT CONFUSED AT BASELINE. PATIENT ORIENTED TO SELF, THAT HE LIVES IN [place] AND TO FOLLOWING DIRECTIONS. PATIENT HAS FLAT AFFECT, CALM, COOPERATIVE. NO LEFT VS RIGHT SIDE DEFICITS NOTED. PATIENT HAS NO COMPLAINTS OF PAIN AT THIS TIME. PATIENT HAS TEMP OF 100.2 DEGREES FAHRENHEIT. PATIENT SATTING 90% AND GREATER ON RA. PATIENT IN FIRST DEGREE HB AND BBB, HR 70S TO 80S. SBP 150S TO 160S. DATE OF ACTUAL LAST BM UNKNOWN. PATIENT HAD A COUPLE OF SMEARS FOR RECONCILIATION CLERK PER NOC RN. MILLER IN PLACE DRAINING YELLOW COLORED URINE. PATIENT HAS CHRONIC MILLER AT HOME. SCANT OLD BLOOD NOTED AT URETHRA. PATIENT HAS CHANGES TO MEATUS FROM CHRONIC MILLER USE. COCCYX REDDENED. PATIENT HAS BEEN REPOSITIONING OWN HIPS. NS TKO. BLOOD SUGAR OF 256 THIS AM; COVERAGE GIVEN. BED LOW, CALL LIGHT IN REACH, BED ALARM ON. WILL CONTINUE TO MONITOR PATIENT FREQUENTLY THROUGHOUT SHIFT.
--- NOTE | 2020-07-04 09:52 | NUR ---
DR. WILLSON CALLED AND INFORMED THAT PATIENT NAUSEAOUS AND VOMITED LAST NIGHT AND ALSO THIS AM. EMESIS DARK BROWN/ MAROON IN COLOR. GOWN LEFT ON COUNTER FOR DR. WILLSON TO SEE AND SHE VERIFIED THAT SHE DID. DOCTOR INFORMED OF HS TMAX OF 100.2 DEGREES FAHRENHEIT. NO ORDER RECEIVED AT THIS TIME.
--- NOTE | 2020-07-04 11:30 | NUR ---
PATIENT HAS TEMP OF 100.0 DEGREES FAHRENHEIT. NO COMPLAINTS OF PAIN. HR IN THE 70S. SBP 140S TO 150S. PATIENT GIVEN PRN ANTIEMETIC FOR COMPLAINT OF NAUSEA. BLOOD SUGAR OF 178; COVERAGE GIVEN. NO OTHER ACUTE CHANGES TO NOTE ON AT THIS TIME. WILL CONTINUE TO MONITOR.
--- NOTE | 2020-07-04 16:51 | NUR ---
PATIENT RESTING QUIETLY IN BED. TEMP OF 99.8 DEGREES FAHRENHEIT. HR 60S TO 80S. SBP 140S TO 160S. SCHEDULED COREG GIVEN. BLOOD SUGAR OF 160; COVERAGE GIVEN. NO OTHER ACUTE CHANGES TO NOTE ON AT THIS TIME. WILL CONTINUE TO MONITOR.
--- NOTE | 2020-07-04 16:52 | NUR ---
SHIFT SUMMARY PATIENT REMAINED CONFUSED AT BASELINE. PATIENT HAD TMAX OF 100.4 DEGREES FAHRENHEIT. PATIENT HAD NO COMPLAINTS OF PAIN. PATIENT REMAINED SATTING 90% AND GREATER ON RA. PATIENT REMAINED IN FIRST DEGREE BLOCK WITH BBB. HR 60S TO 80S. SBP MOSTLY 140S TO 160S. DR. WILLSON STARTED BP MEDS TODAY. PATIENT HAD NAUSEA X 2 TODAY. PATIENT DID VOMIT UP DARK BROWN/ MAROON VOMIT. MADE AWARE OF THIS. PATIENT GIVEN ZOFRAN X 2 AND PHENERGAN OT. PATIENT DID NOT HAVE MUCH OF AN APPETITE TODAY. MILLER DRAINED ADEQUATE AMOUNT OF YELLOW COLORED URINE. NO CHANGE TO SKIN. PATIENT COVERED EACH TIME FOR BLOOD SUGARS OF 256, 178, 160. PATIENT HAD COMPLETE BED BATH. PATIENT HAS NO COMPLAINTS AT THIS TIME. PATIENT WILL BE TRANSFERRED TO MEDICAL FLOOR SHORTLY.
--- NOTE | 2020-07-04 17:03 | NUR ---
PATIENT TRANSFERRED TO MEDICAL FLOOR, ROOM 302 BY SALES MARKETING. ALL BELONGINGS SENT WITH PATIENT.
--- NOTE | 2020-07-04 17:26 | NUR ---
PT ARRIVED TO THE UNIT VIA BED. HE WAS ORIENTED TO THE ROOM. NO NEEDS AT THIS TIME. HE IS RESPONSIVE TO QUESTIONS
--- NOTE | 2020-07-04 23:25 | NUR ---
RESTRAINTS UPON ENTERING ROOM PT HAD A HOLD OF HIS CATHETER AND WAS ATTEMPTING TO PULL IT OUT. BLOOD NOTED ON BED AND HANDS AND RUE. NO BLOOD NOTED AT CATHETER SITE. THEN NOTED THAT PT HAD PULLED OUT HIS POWERGLIDE. WHILE CLEANING PT UP PT CONTINUED TO GRAB AT HIS CATHETER. BILATERAL WRIST RESTRAINTS APPLIED TO PT TO PROTECT LINES. PT IS ORIENTED ONLY TO SELF. ORDER OBTAINED FROM DR. TOLEDO.
--- NOTE | 2020-07-05 04:27 | NUR ---
SHIFT SUMMARY PT IS A/O X 1-2. ALERT TO SELF, AT ONE POINT KNEW THAT HE WAS IN THE HOSPITAL. PT IS CONFUSED. PULLED OUT POWERGLIDE AND WAS FOUND TO BE PULLING ON MILLER CATHETER. BILATERAL SOFT WRIST RESTRAINTS APPLIED AND REMAINED ON THROUGHOUT THE NIGHT. PREVIOUS TRAUMA TO PENIS NOTED, APPEARS TO BE FROM PREVIOUS ATTEMPTS AT PULLING OUT CATHETER. MILLER CATHETER IS PATENT AND DRAINING YELLOW URINE. PT REMAINED IN BED THIS EVENING. TURNED Q 2 HOURS. PT DENIED ANY PAIN OR DISCOMFORT. VITAL SIGNS STABLE. PT AFEBRILE. WILL CONTINUE TO MONITOR AND REPORT TO DAY RN.
[2020-07-05 05:24] LABS: BASOPHILS ABSOLUTE AUTO 0.03 K/mm3 (0.00-0.23); BASOPHILS PERCENT AUTO 0 % (0-2); EOSINOPHILS ABSOLUTE AUTO 0.02 K/mm3 (0.00-0.68); EOSINOPHILS PERCENT AUTO 0 % (0-6); Hematocrit 30.4 % (37.0-53.0); Hemoglobin 9.9 g/dL (13.5-17.5); IMMATURE GRAN ABSOLUTE AUTO 0.05 K/mm3 (0.00-0.10); IMMATURE GRAN PERCENT AUTO 0 % (0-1); LYMPHOCYTES PERCENT AUTO 8 % (21-46); MONOCYTES ABSOLUTE AUTO 1.51 K/mm3 (0.16-1.47); MONOCYTES PERCENT AUTO 13 % (4-13); Mean Corpuscular HGB 29.9 pg (26.0-34.0); Mean Corpuscular HGB Conc 32.6 g/dL (31.5-36.5); Mean Corpuscular Volume 92 fL (80-100); Mean Platelet Volume 12.2 fL (9.1-12.4); NEUTROPHILS ABSOLUTE AUTO 8.97 K/mm3 (1.96-9.15); NEUTROPHILS PERCENT AUTO 78 % (41-73); Platelet Count 237 K/mm3 (150-400); RDW Coefficient Variation 12.3 % (11.7-14.2); RDW Standard Deviation 41.9 fL (35.1-46.3); Red Blood Cell Count 3.31 M/mm3 (4.30-5.90); White Blood Cell Count 11.48 K/mm3 (4.00-11.30)
[2020-07-05 05:32] LABS: Alanine Aminotransfer (ALT/SGP 51 U/L (12-78); Albumin, Blood 2.5 g/dL (3.4-5.0); Albumin/Globulin Ratio 0.7 (0.8-1.8); Alk Phos 144 U/L (50-136); Anion Gap 6 mmol/L (6-16); Aspartate Aminotrans (AST/SGOT 45 U/L (12-37); Bilirubin, Total 0.3 mg/dL (0.1-1.0); Blood Urea Nitrogen 20 mg/dL (8-24); Bun/Creatinine Ratio 23.3 (12.0-20.0); CO2, Blood 24 mmol/L (21-32); Calcium, Blood 8.4 mg/dL (8.5-10.1); Chloride, Blood 108 mmol/L (98-108); Creatinine, Blood 0.86 mg/dL (0.60-1.20); Globulin, Blood 3.5 g/dL (2.2-4.0); Glomerular Filtration Rate >60 (60-); Glucose, Blood 132 mg/dL (70-99); Potassium, Blood 3.9 mmol/L (3.5-5.5); Sodium, Blood 138 mmol/L (136-145)
--- NOTE | 2020-07-05 17:03 | NUR ---
SHIFT SUMMARY- PT IS ALERT, COOPERATIVE, AND PLESANT. HE WAS IN RESTRAINTS AT THE BEGINNING OF THE SHIFT FOR PULLING OUT LINES. HE WAS REMOVED FROM THEM THIS MORNING HE DID NOT ATTEMPT TO PULL ANY LINES AND AFTER DISCUSSION ABOUT LEAVING LINES ALONE. HE WORKED WITH PT, OT, AND ST. HE COOPERATED WELL WITH THEM. HE IS EATING AND DRINKING WELL. HE WAS UP TO THE CHAIR FOR SEVERAL HOURS THIS SHIFT. HIS BLOOD GLUCOSE WAS ELEVATED THIS AFTERNOON AND EVENING. COVERAGE WAS CHANGED FROM A LOW SS TO A MED SS. SPOKE WITH NURSE AT [facility], SHE EXPRESSED CONCERN FOR THE PT RETURNING TO THEIR FACILITY AND REPORTED THAT HE NEEDS A HIGHER LEVEL OF CARE. SPOKE ABOUT THIS CONCERN TO THE MANAGER OF COMMUNITY RELATIONS. HIS IMLLER IS PATIENT AND DRAINING. HE IS RECIEVING IV ABX.
--- NOTE | 2020-07-06 04:33 | NUR ---
COMMERCIAL REAL ESTATE BROKER SUMMARY ALERT AND ORIENTED TO SELF ONLY. APPEARED TO SLEEP T/O THE NIGHT. DENIES PAIN OR DISCOMFORT. NO ACUTE CHANGES NOTED. BED IN LOWEST POSITION WITH CALL LIGHT IN REACH. WILL CONTINUE TO MONITOR AND REPORT TO ONCOMING RN.
--- NOTE | 2020-07-06 14:56 | NUR ---
SHIFT SUMMARY PT RESTING QUIETLY AT START OF SHIFT. WOKE EASILY FOR CARE. ASSISTED TO CHAIR FOR BREAKFAST. PT VERY WEAK, MOVING VERY SLOWLY USING FWW, NEEDING FREQUENT REMINDERS. HX OF CVA AND DEMENTIA. SOME CONFUSION AND FORGETFULNESS NOTED. SP IN TO SEE PT AT BREAKFAST; DIET CHANGED TO PUREE. PT/OT IN TO WORK WITH PT. PT LACKS MOTIVATION TO PARTICIPATE. WANTS TO GO HOME, BUT UNABLE TO GET OOB ON HIS OWN. ADMITTED FOR SEPSIS R/T UTI; CHRONIC MILLER IN PLACE, DRAINING CL YELLOW URINE. DR WILLSON IN TO SEE PT. NEW ORDERS PLACED. PT RESTING QUIETLY AT THIS TIME. DENIED FURTHER NEEDS. CALL LT IN PLACE.
--- NOTE | 2020-07-07 04:07 | NUR ---
LITHOGRAPH DESIGNER SUMMARY ALERT AND ORIENTED TO SELF ONLY. CONFUSION AND FORGETFULNESS NOTED. DENIES PAIN OR DISCOMFORT. BREATHING IS UNLABORED. NO ACUTE CHANGES AT THIS TIME. BED IN LOWEST POSITION WITH CALL LIGHT IN REACH. WILL CONTINUE TO MONITOR AND REPORT TO ONCOMING RN.
[2020-07-07 08:59] LABS: BASOPHILS ABSOLUTE AUTO 0.03 K/mm3 (0.00-0.23); BASOPHILS PERCENT AUTO 0 % (0-2); EOSINOPHILS ABSOLUTE AUTO 0.16 K/mm3 (0.00-0.68); EOSINOPHILS PERCENT AUTO 2 % (0-6); Hemoglobin 9.8 g/dL (13.5-17.5); IMMATURE GRAN ABSOLUTE AUTO 0.04 K/mm3 (0.00-0.10); IMMATURE GRAN PERCENT AUTO 1 % (0-1); LYMPHOCYTES ABSOLUTE AUTO 1.19 K/mm3 (0.84-5.20); LYMPHOCYTES PERCENT AUTO 17 % (21-46); MONOCYTES ABSOLUTE AUTO 0.85 K/mm3 (0.16-1.47); MONOCYTES PERCENT AUTO 12 % (4-13); Mean Corpuscular HGB 29.8 pg (26.0-34.0); Mean Corpuscular HGB Conc 32.7 g/dL (31.5-36.5); Mean Corpuscular Volume 91 fL (80-100); Mean Platelet Volume 10.7 fL (9.1-12.4); NEUTROPHILS ABSOLUTE AUTO 4.87 K/mm3 (1.96-9.15); NEUTROPHILS PERCENT AUTO 68 % (41-73); Platelet Count 246 K/mm3 (150-400); RDW Coefficient Variation 12.2 % (11.7-14.2); RDW Standard Deviation 40.5 fL (35.1-46.3); Red Blood Cell Count 3.29 M/mm3 (4.30-5.90); White Blood Cell Count 7.14 K/mm3 (4.00-11.30)
[2020-07-07 09:15] LABS: Alanine Aminotransfer (ALT/SGP 47 U/L (12-78); Albumin, Blood 2.8 g/dL (3.4-5.0); Albumin/Globulin Ratio 0.7 (0.8-1.8); Alk Phos 153 U/L (50-136); Anion Gap 3 mmol/L (6-16); Aspartate Aminotrans (AST/SGOT 36 U/L (12-37); Bilirubin, Total 0.3 mg/dL (0.1-1.0); Blood Urea Nitrogen 14 mg/dL (8-24); Bun/Creatinine Ratio 17.6 (12.0-20.0); CO2, Blood 29 mmol/L (21-32); Calcium, Blood 8.6 mg/dL (8.5-10.1); Chloride, Blood 103 mmol/L (98-108); Globulin, Blood 3.8 g/dL (2.2-4.0); Glomerular Filtration Rate >60 (60-); Glucose, Blood 171 mg/dL (70-99); Magnesium, Blood 2.2 mg/dL (1.6-2.4); Potassium, Blood 3.9 mmol/L (3.5-5.5); Sodium, Blood 135 mmol/L (136-145); Total Protein, Blood 6.6 g/dL (6.4-8.2)
--- NOTE | 2020-07-07 15:08 | NUR ---
SHIFT SUMMARY PT AWAKE THIS AM AT START OF SHIFT. PER REPORT, PT BEING DEMANDING THRU OUT THE NIGHT. PT REMAINED AWAKE UNTIL AFTER BREAKFAST AND THEN TOOK A NAP, SLEEPING SOUNDLY WHEN DR HUTCHISON CAME TO SEE HIM. PT HAD WANTED TO GO HOME YESTERDAY. DR HUTCHISON WAS GOING TO D/C PT BACK TO [facility] TODAY, BUT THEY WERE UNABLE TO RECEIVE HIM TODAY. DR HUTCHISON UNDATED ON PT STATUS. PT GETTING OOB WHEN HE WOKE UP, SETTING BED ALARM OFF, WANTING TO SIT IN CHAIR AT BS. ASSISTED PT UP TO CHAIR, REMAINING FOR LUNCH AND AFTER; 1P ASSIST USING FWW. PT MOVES SLOWLY, SHUFFLES FEET. NO BM TODAY; BOWEL CARE GIVEN. NO C/O PAIN. YELLS OUT FOR NEEDS. REORIENTED PT TO USE OF CALL LT. RESTING QUIETLY, WATCHING TV AT THIS TIME. NO ACUTE DISTRESS NOTED OR REPORTED. CALL LT IN REACH.
--- NOTE | 2020-07-07 18:30 | NUR ---
PT OOB TO CHAIR FOR DINNER. CURRENTLY ON BSC, TRYING TO HAVE BM. [facility] CALLED BACK THIS AFTERNOON REQUESTING D/C ORDERS TO BE FAXED TODAY SO NURSE COULD REVIEW THEM AHEAD OF TIME, BEFORE COMING TO ASSESS PT TOMORROW. D/C ORDERS FAXED TO [phone]. NURSE FROM [facility] CALLED TO COMFIRM RECEIVING ORDERS AND TO CLARIFY REASON FOR SENDING. [facility] NURSE WAS INFORMED THAT HER [facility] HAD REQUESTED THEM IN ADVANCE.
--- NOTE | 2020-07-08 03:56 | NUR ---
ED PHYSICIANS SUMMARY ALERT AND ORIENTED TO SELF ONLY. APPEARED TO SLEEP T/O THE NIGHT. DENIES PAIN OR DISCOMFORT. BREATHING IS UNLABORED. NO ACUTE CHANGES AT THIS TIME. BED IN LOWEST POSITION WITH CALL LIGHT IN REACH. WILL CONTINUE TO MONITOR AND REPORT TO ONCOMING RN.
--- NOTE | 2020-07-08 08:39 | NUR ---
Patient did not want breakfast, he declined his tray when it was brought in the room. When I took into him and woke him up for breakfast to assist him with his meal he was aggiatted and he stated " I am not hungry, I am sleepy. I am not hungry." I approcahed in another way and he still declined. I left the room and fed another patent and came back to help him and he still declined. RN Notified.
--- NOTE | 2020-07-08 13:18 | NUR ---
Patient did not eat lunch this shift. Patient stated he was not hungry. RN notified.
--- NOTE | 2020-07-08 18:12 | NUR ---
SHIFT SUMMARY- PT SLEPT MOST OF THIS SHIFT. HE REFUSED MORNING MEDICATIONS. HIS BLOOD SUGARS HAVE REMAINED STABLE. HE REFUSED BREAKFAST AND LUNCH. HE HAS BEEN YELLING OUT THIS AFTERNOON AND HAS BEEN AGITATED. HIS CARE FACILITY CAME TO REEVALUATE HIM AND REPORTED THAT HE WAS GOING TO NEED A HIGHER LEVEL OF CARE.
--- NOTE | 2020-07-08 18:43 | NUR ---
PT MOVED TO ROOM 352. BELONGINGS TRANSERED TO ROOM.
--- NOTE | 2020-07-09 06:48 | NUR ---
07/09/20 0600 SLEPT ON AND OFF THIS SHIFT. DENIES ANY DISCOMFORT THIS SHIFT. MILLER CATH PATENT AND DRAINING WELL. VITALS STABLE. REPOSITIONED Q 2-3 HOURS THIS SHIFT. BLOOD SUGARS STABLE.
--- NOTE | 2020-07-09 18:40 | NUR ---
SHIFT SUMMARY PT A/O X1. WITHDRAWN AT TIMES AND HAS BEEN FATIGUED FOR MOST TO THE DAY. HE DID GET UP FOR A SHOWER AND HAS BEEN IN THE CHAIR FOR MOST OF THE DAY. REF HIS LUNCH AND INSULIN AT LUNCH SO HE COULD CONTINUE TO SLEEP. HE SLEPT FOR MOST OF THE DAY. 2 PERSON ASSIST TO GET UP. REPORTS CONSTIPATION. MILLER IN PLACE; PATENT AND DRAINING. VSS. PT RESTING COMFORTABLY IN BED WITH CALL LIGHT IN REACH.
--- NOTE | 2020-07-10 04:47 | NUR ---
SHIFT SUMMARY ADMITTED FOR SEPSIS. LIMITED CODE (MEDS ONLY). CHRONIC MILLER IS PATENT AND DRAINING. MEALTIMES SHOULD BE SUPERVISED, DYSPHAGIA PRECAUTIONS. PLAN IS FOR PLACEMENT TO A SNF. HE IS COOPERATIVE WITH CARE. NO NEW CONCERNS THIS SHIFT. I DID PROCURE A BSC FOR HIS USE. HE IS A 2 ASSIST TO BSC/CHAIR.
--- NOTE | 2020-07-10 18:03 | NUR ---
SHIFT SUMMARY PT A/O X1 AND CONFUSED AT BASELINE. PT IS UNABLE TO ANSWER MOST QUESTIONS. PT HAS A CHRONIC MILLER THAT IS PATENT AND DRAINING. THE PT'S AND DAUGHTER CAME IN TO VISIT TODAY. CARE MANAGEMENT IS WORKING ON PLACEMENT. PT IS A 2 ASSIST TO THE BSC. PT REPORTS FEELINGS OF CONSTIPATION AND HAS NOT HAD A BM TODAY. VSS. CURRENTLY RESTING COMFORTABLY IN BED.
--- NOTE | 2020-07-11 04:11 | NUR ---
BLANKET WINDER OPERATOR SUMMARY ALERT AND ORIENTED TO SELF ONLY. CONFUSED AND SLOW TO RESPOND. DENIES PAIN OR DISCOMFORT. BREATHING IS UNLABORED. VSS. NO ACUTE CHANGES AT THIS TIME. APPEARED TO SLEEP T/O SHIFT. BED IN LOWEST POSITION WITH CALL LIGHT IN REACH. WILL CONTINUE TO MONITOR AND REPORT TO ONCOMING RN.
--- NOTE | 2020-07-11 19:19 | NUR ---
SHIFT SUMMARY- PT HAS HAD NO ACUTE CHANGE T/O THE DAY HE STILL DOES NOT CALL APPROPRIATELY JUST YELLING OUT FOR STAFF WHEN HE NEEDS ASSISTANCE. PT WAS UP IN THE CHAIR FOR LUNCH AND DINNER. IMMEDIATELY UPON COMPLETING HIS FOOD HE STARTS TO YELL FOR STAFF TO GET HIM BACK TO BED. PT IS A 2P MAX ASSIST WITH TRANSFERS FOR SAFETY. PT IN BED CALL LIGHT IN REACH BED ALARM SET FOR SAFETY, PT HAD A VERY LARGE FORMED STOOL THIS EVENING. PASSED ALL ON IN BEDSIDE REPORT TO NIGHT RN.
--- NOTE | 2020-07-12 04:32 | NUR ---
CAMPUS MANAGER SUMMARY ALERT AND ORIENTED TO SELF ONLY. PLEASANT AND COOPERATIVE THIS SHIFT. APPEARED TO SLEEP T/O NIGHT. DENIES PAIN OR DISCOMFORT. VSS. NO ACUTE CHANGES AT THIS TIME. BED IN LOWEST POSITION WITH CALL LIGHT IN REACH. WILL CONTINUE TO MONITOR AND REPORT TO ONCOMING RN.
--- NOTE | 2020-07-12 10:09 | NUR ---
CALLED DR HUTCHISON- PT BG 127 THIS MORNING NEW DOSE OF LANTUS 15 UNITS RECIEVED LAST NIGHT. PT ADIMANT HE DOES NOT WANT TO EAT ANY BREAKFAST. RECIEVED ORDER TO HOLD 15 UNIT DOSE AND GIVE ONLY 10 UNITS THIS MORNING.
--- NOTE | 2020-07-12 16:06 | NUR ---
SHIFT SUMMARY- PT HAS SLEPT T/O THE DAY REFUSING TO WAKE FOR MEALS, BG HAS STAYED 150 OR BELOW TODAY. PT DID WAKE A LITTLE THIS EVENING TO ASK FOR A DIET PEPSI AND HE STATED THE ONLY THING BETTER THAN A DIET PEPSI IS A DIET DR LEY. PT SEEMED TO BE IN A MUCH MORE PLEASENT MOOD AFTER SLEEPING FOR MOST OF THE DAY. PLAN [facility], PT CURRENTLY BEING EVALUATED BY A FACILITY IN [place] [facility] IS FOR POSSIBLE DC WEDNESDAY.
--- NOTE | 2020-07-12 17:10 | NUR ---
CALLED DR HUTCHISON PT HR 56 CARVEDILOL ORDERED. REQUESTED PARAMETERS RECIEVED ORDER TO REDUCE TO 3.125 BID WITH PARAMETERS TO HOLD FOR HR LESS THAN 55.
--- NOTE | 2020-07-13 06:23 | NUR ---
SHIFT SUMMARY NO ACUTE CHANGES THIS SHIFT. PT ONLY TRIED TO GET OUT OF BED BY HIMSELF X1. EDUCATED PT ON POSITION OF MILLER BAG, STATING THAT IT NEEDED TO BE KEPT ON THE SIDE OF THE BED INSTEAD OF ON TOP OF THE BED. NO APPARENT DISTRESS OR NEEDS AT THIS TIME. WILL CONTINUE TO MONITOR UNTIL REPORT GIVEN TO DAY RN.
--- NOTE | 2020-07-13 16:34 | NUR ---
SHIFT SUMMARY PT IS AOX1. PT IS ABLE TO ANSWER QUESTIONS, BUT CONFUSED AT TIMES. PT HAS A CHRONIC MILLER IN PLACE; PATENT AND DRAINING. PT ON SWALLOW PRECAUTIONS; NO C/O OF PAIN; N&V; SOB OR CP. NO ACUTE CHANGES AT THIS TIME. BED IS IN THE LOWEST POSITION; BED ALARM ON; CALL LIGHTS WITHIN REACH; AND WILL CONT MONITOR.
--- NOTE | 2020-07-14 05:27 | NUR ---
SHIFT SUMMARY NO ACUTE CHANGES THIS SHIFT. PT HAD SOME DIFFICULTY SLEEPING THIS SHIFT BUT WAS ABLE TO REST COMFORTABLY SINCE MIDNIGHT. NO APPARENT DISTRESS OR NEEDS AT THIS TIME. CALL LIGHT AND PERSONAL ITEMS WITHIN REACH. WILL CONTINUE TO MONITOR UNTIL REPORT GIVEN TO DAY RN.
--- NOTE | 2020-07-14 17:15 | NUR ---
SHIFT SUMMARY PT AOX1, ON ASPIRATION PRECAUTIONS. PT SLEPT MOST OF THE DAY; WILL ANSWER YES OR NO QUESTIONS. AWAITS PLACEMENT. NO ACUTE CHANGES AT THIS TIME. NO C.O PAIN, N&V, NO APPARENT DISTRESS. VSS. PT HAS CHRONIC MILLER PATENT AND DRAINING. BED IS IN THE LOWEST POSITION; CALL LIGHTS WITHIN REACH AND WILL CONT MONITOR.
--- NOTE | 2020-07-15 06:24 | NUR ---
SHIFT SUMMARY NO ACUTE CHANGES THIS SHIFT. PT SLEPT T/O NIGHT. REPOSITIONED Q2H. PT IS LAYING IN BED, BED IN LOWERED POSITION. BED ALARM ON. NO APPARENT DISTRESS OR NEEDS AT THIS TIME. CALL LIGHT AND PERSONAL ITEMS WITHIN REACH. WILL CONTINUE TO MONITOR UNTIL DAY REPORT GIVEN TO DAY RN.
--- NOTE | 2020-07-16 05:16 | NUR ---
SHIFT SUMMARY AOX1-SELF ONLY, UNAWARE PLACE, DATE, SITUATION. SLOW TO RESPOND. DOES NOT RESPOND TO ALL QUESTIONS ASKED, CAN ANSWER YES/NO QUESTIONS & FOLLOW SIMPLE DIRECTIONS. WITHDRAWN, FLAT AFFECT. TURNED & REPOSITIONED PRN. CBG @ WAS 353, PROVIDED COVERAGE PER ORDERS. MILLER IS PATENT & DRAINING CLEAR YELLOW URINE. DENIES PAIN, N/V OR DYSPNEA. CALL LIGHT IN REACH.
--- NOTE | 2020-07-16 18:16 | NUR ---
SHIFT SUMMARY PT WAS UP IN CHAIR MOST OF THE DAY. PT HAS GOOD APPETITE WITH ASSISTANCE WITH EATING. PT HAD A BED BATH AND TOLERATED WELL. PT HAS NO COMPLAINTS OF PAIN OR ANY OTHER COMPLAINTS. NO ACUTE CHANGES THIS SHIFT. WAITING FOR PLACEMENT. CALL LIGHT IN REACH. BED ALARM ON FOR SAFETY.
--- NOTE | 2020-07-17 04:12 | NUR ---
SHIFT SUMMARY NO ACUTE CHANGES THIS SHIFT. AOX1-SELF ONLY. VSS. DENIES N/V, PAIN, DYSPNEA. REPOSITIONED Q2 PRN. MILLER IS PATENT & DRAINING CLEAR YELLOW URINE. CALL LIGHT IN REACH & BED ALARM IN PLACE.
--- NOTE | 2020-07-17 09:55 | NUR ---
PT WILL AWAKEN TO LIGHT STERNAL RUB. REFUSED MEDS AND BREAKFAST THIS AM. TOLD ME TO LEAVE HIM ALONE. MEDS HELD. UNABLE TO GIVE ME HIS NAME. DID OPEN EYES WHEN TALKED TO AND LITE RUB. THEN CLOSES. NO RESPONSES GIVEN. H/R REG, NO MURMER NOTED. NO TELE. LUNGS CLEAR, RESP EASY, UNLABORED. ON R/A. BT X4 LAST BM UNKNOWN BY PT. VOIDS MILLER CATH. CLEAR YELLOW FLUID DRAINING. BED IN LOW POSITION, CALL LITE IN REACH, BED ALARM ON FOR SAFETY
--- NOTE | 2020-07-17 17:21 | NUR ---
PT HAS SLEPT MOST OF DAY. HAS REFUSED MEDS THIS AM. A;SO TOLD ME TO LEAVE HIM ALONE. REFUSED FOOD AM AND NOON. CHELSEA SPOKE TO DR HARDWICK, IS AWARE AND HE WAXES AND WANES AT BASELINE. NO NEW CONCERNS AT THIS TIME. BED IN LOW POSITION, CALL LITE IN REACH, BED ALARM ON FOR SAFETY
--- NOTE | 2020-07-17 18:50 | NUR ---
PT WOKE UP ABOUT 1730. ASKED TO EAT. ASSISTED HIM WITH DINNER. HE ATE ABOUT 80% OF HIS DINNER. NO CHOKING NOTED. WAS PLEASANT AND COOP AT THIS TIME. AFTER DINNER DID SIT BACK AND REST AGAIN. BED IN LOW POSITION, CALL LITE IN REACH, BED ALARM ON FOR SAFETY
--- NOTE | 2020-07-17 23:25 | NUR ---
2016 PT LYING IN BED, DENIES ANY DISCOMFORT AT THIS TIME. SOME REDNESS ON BOTTOM, APPLIED LOTION. BS WAS 210. MILLER WITH CLEAR YELLOW URINE. NO APPARENT SIGNS OF DISTRESS. CALL LIGHT IS IN REACH. BED ALARM IS ON.
--- NOTE | 2020-07-17 23:26 | NUR ---
2218 PT LYING IN BED, EYES CLOSED, APPEARS TO BE RESTING. BREATHING IS EVEN, UNLABORED. NO APPARENT SIGNS OF DISTRESS CALL LIGHT IS IN REACH. BED ALARM IS ON.
--- NOTE | 2020-07-18 01:16 | NUR ---
0014 TURNED PT. PT DENIES NEED FOR ANYTHING AT THIS TIME. NO APPARENT SIGNS OF DISTRESS. CALL LIGHT IS IN REACH. BED ALARM IS ON.
--- NOTE | 2020-07-18 03:10 | NUR ---
0200 PT LYING IN BED, EYES CLOSED, APPEARS TO BE RESTING. BREATHING IS EVEN, UNLABORED. NO APPARENT SIGNS OF DISTRESS. CALL LIGHT IS IN REACH. BED ALARM IS ON.
--- NOTE | 2020-07-18 06:43 | NUR ---
0400 PT LYING IN BED, EYES CLOSED, APPEARS TO BE RESTING. WAKES EASILY TO VERBAL STIMULI. NO APPARENT SIGNS OF DISTRESS. CALL LIGHT IS IN REACH.
--- NOTE | 2020-07-18 06:44 | NUR ---
PT LYING IN BED, EYES CLOSED, APPEARS TO BE RESTING. BREATHING IS EVEN, UNLABORED. NO APPARENT SIGNS OF DISTRESS. CALL LIGHT IS IN REACH. BED ALARM IS ON. NO OTHER CHANGES THIS SHIFT.
--- NOTE | 2020-07-18 06:45 | NUR ---
PT IS AAO X 1-2, ON RA. DENIED ANY DISCOMFORT FOR THIS SHIFT. BS WAS 210. MILLER CLEAR YELLOW URINE.
--- NOTE | 2020-07-18 18:11 | NUR ---
SHIFT SUMMARY NO CHANGES THIS SHIFT. PT SLEEPING A LOT THIS SHIFT. REFUSED TO TAKE ALL OF HIS MEDICATIONS THIS AM. THIS RN WAS ABLE TO GET THE MOST IMPORTANT ONES ADMINISTERED. NO COMPLAINTS OF PAIN. WAITING FOR PLACEMENT. CALL LIGHT IN REACH. BED ALARM ON FOR SAFETY.
--- NOTE | 2020-07-18 22:47 | NUR ---
1905 PT LYING IN BED, DENIES ANY DISCOMFORT AT THIS TIME. MILLER W/CLEAR YELLOW URINE. BS WAS 250. NO OTHER APPARENT SIGNS OF DISTRESS. CALL LIGHT IN REACH. BED ALARM IS ON.
--- NOTE | 2020-07-18 23:13 | NUR ---
2240 TURNED AND CHANGED PT. PT DENIES NEED FOR ANYTHING ELSE AT THIS TIME. CALL LIGHT IS IN REACH. NO APPARENT SIGNS OF DISTRESS. BED ALARM IS ON.
--- NOTE | 2020-07-19 02:09 | NUR ---
TURNED PT, PT DENIES NEED FOR ANYTHING ELSE AT THIS TIME. NO APPARENT SIGNS OF DISTRESS. CALL LIGHT IS IN REACH. BED ALARM IS ON.
--- NOTE | 2020-07-19 05:05 | NUR ---
PT IS AAO X 2-3, ON RA. PT DENIED ANY DISCOMFORT FOR THIS SHIFT. BS WAS 250 SOME REDNESS ON BOTTOM. USED POWDER ON BOTTOM.
--- NOTE | 2020-07-19 05:05 | NUR ---
TURNED PT. NO APPARENT SIGNS OF DISTRESS. CALL LIGHT IS IN REACH. BED ALARM IS ON.
--- NOTE | 2020-07-19 06:30 | NUR ---
TURNED AND CHANGED PT, NO APPARENT SIGNS OF DISTRESS. CALL LIGHT IS IN REACH. BED ALARM IS ON. NO OTHER CHANGES THIS SHIFT.
--- NOTE | 2020-07-19 12:34 | NUR ---
TOOK IN PATIENTS LUNCH, HE DID NOT WANT TO EAT AT THIS TIME OR TAKE HIS INSULIN. HE STATED HE WAS TIRED (PATIENT WAS JUST BED BATHED) AND WNATED TO REST. WILL TRY LATER.
--- NOTE | 2020-07-19 17:30 | NUR ---
SHIFT SUMMARY PATIENT IS PLEASANT, SLEEPY AND LETHARGIC. VOICE VERY QUIET WHEN HE DOES TALK. BLOOD SUGAR HAS BOUNCED BACK AND FORTH TODAY AND HAS NOT TAKEN HIS COREG AT ALL TODAY DENIES ANY CONCERNS. HE IS JUST AWAITING PLACEMENT. HE HAS BEEN COOPERATIVE MINUS TAKING HIS COREG TODAY HE DID NOT WANT TO EAT LUNCH HE WAS TOO TIRED. WILL OFFER AGAIN AT DINNER.
--- NOTE | 2020-07-20 04:51 | NUR ---
SHIFT SUMMARY PATIENT ALERT AND ORIENTED TO SELF. HAD NO COMPLAINTS OF PAIN OR SHORTNESS OF BREATH. WAS AWAKE MOST OF THE NIGHT PRESSING BUTTONS ON HIS BED. BED IN LOWEST POSITION WITH WHEELS LOCKED AND ALARM ON. CALL LIGHT WITHIN REACH. REPORT GIVEN TO ONCOMING MARQUITA.
--- NOTE | 2020-07-20 17:26 | NUR ---
PATIENT DOESN'T SEEM TO BE VERY ORIENTED. BLANK STARES TO QUESTIONS. VITALS STABLE. NO ACUTE CHANGES TO REPORT ON AT THIS TIME. WILL CONTINUE TO MONITOR AND PROVIDE CARE NEEDED
--- NOTE | 2020-07-21 07:48 | NUR ---
SHIFT SUMMARY PATIENT STAYED IN BED MOST OF THE NIGHT, ATTEMPTED TO CLIMB OUT A COUPLE TIMES. HE KEEPS ASKING WHEN HE CAN LEAVE. HE DID NOT GET ANY SLEEP OVERNIGHT. MILLER PATENT AND DRAINING TO GRAVITY. BED IN LOWEST POSITION WITH WHEELS LOCKED AND ALARM ON. CALL LIGHT WITHIN REACH. REPORT GIVEN TO ONCOMING RN.
--- NOTE | 2020-07-21 15:10 | NUR ---
PATIENT HAS BEEN PLEASANT AND COOPERATIVE WITH STAFF. VITALS ARE STABLE. MILLER CONTINUES TO DRAIN TO GRAVITY. NO ACUTE CHANGES NOTED THIS SHIFT. WILL CONTINUE TO MONITOR AND PROVIDE CARE NEEDED.
--- NOTE | 2020-07-21 23:00 | NUR ---
RECEIVING NOTE RECEIVED HAND OFF FROM Janett NUÑEZ RN USING SBAR. LYING ON LEFT SIDE FACING WINDOW WITH EYES CLOSED. AAO X SELF ONLY. MOVES UPPER EXTREMITES WITH EASE, BLE STIFF, BUT ABLE TO CROSS ANKLES. FOLLOWS COMMANDS. REORIENTED TO ROOM, CALL SYSTEM, AND POC, KNODS UNDERSTANDING. RESPIRATIONS EVEN AND UNLABORED ON ROOM AIR. LUNG SOUNDS CLEAR BILATERALLY. ABDOMEN SOFT AND NONDISTENDED. BOWEL SOUNDS PRESENT IN ALL QUADS. NO PIV OR TELE. INCONTINENT OF BLADDER AND BOWEL, MILLER CATH DRAINING CONCENTRATED YELLOW URINE TO GRAVITY. ATTENDS IN PLACE, CHANGED PRN SOILING. DENIES FURTHER NEEDS OR WANTS AT THIS TIME. SAFETY MEASURES IN PLACE. WILL CONTINUE TO MONITOR.
--- NOTE | 2020-07-22 06:40 | NUR ---
SHIFT SUMMARY LYING IN SEMI FOWLERS WITH EYES OPEN WHILE WATCHING TV. HAS RESTED OFF AND ON THROUGHOUT SHIFT. SWALLOWS MEDS WITH WATER, NO STRAWS. MILLER CATH CONTINUES TO DRAIN CONCENTRATED YELLOW URINE TO GRAVITY AND ATTENDS CHANGED PRN SOILING. HAD LARGE SOFT FORMED BM THIS MORNING. NO FURTHER NEEDS OR WANTS VERBALIZED AT THIS TIME. SAFETY MEASURES IN PLACE. WILL CONTINUE TO MONITOR AND GIVE HAND OFF TO ONCOMING SHIFT USING SBAR.
--- NOTE | 2020-07-22 16:07 | NUR ---
SHIFT SUMMARY PT IS A/O X 1. HE HAS NO S/S OF DISCOMFORT. HE NEEDED SOME ENCOURAGEMENT THIS MORNING WITH ADLS. ANGELA IS PATENT. PT HAS BEEN RESTING IN BED WITH BED ALARM ON FOR SAFETY. HE CONTINUES TO AWAIT PLACEMENT.
--- NOTE | 2020-07-23 05:55 | NUR ---
SHIFT SUMMARY- PT. CONFUSED, NO C/O PAIN OR DISCOMFORT DURING THE NIGHT. AWAKE MOST OF THE SHIFT WATCHING TV. ATTEMPTED TO GET OOB W/O ASSISTANCE 1X. ASSISTED BACK TO BED BY NURSING STAFF. PT. STATED SEVERAL TIMES HE "WANTS TO GO HOME". SCHEDULED MEDS TAKEN W/O DIFFICULY. HAD BM LAST NIGHT, ATTENDS IN PLACE. MILLER CATHETER PATENT AND DRAINING. CALL LIGHT WITHIN REACH, SIDE RAILS UPX3, AND BED ALARM ON FOR SAFETY. WILL CONT TO MONITOR.
--- NOTE | 2020-07-23 15:56 | NUR ---
SHIFT SUMMARY PT IS A/O X 1 AND HAS NO C/O PAIN OR DISCOMFORT. HE WAS ASSISTED WITH A BED BATH TODAY. SPEECH SAW HIM PER HIS POCKETING OF PILLS YESTERDAY AND CHANGED HIM TO A PUREED DIET. HIS MILLER IS PATENT. PT IS STILL AWAITING PLACEMENT. HIS BED ALARM IS ON FOR SAFETY AND HIS CALL LIGHT IS IN REACH.
--- NOTE | 2020-07-23 18:19 | NUR ---
HE IS COMFORTABLE NOW IN RM 361. HE IS EATING DINNER WITH SUPERVISION. HE NEEDS REMINDING THAT HE NEEDS TO TAKE SMALL BITES. HE IS ORIENTED TO HIS NAME. WILL RESET BED ALARM WHEN DINNER IS DONE. NO COMPLAINTS.
--- NOTE | 2020-07-24 04:15 | NUR ---
SHIFT SUMMARY ASSUMED CARE OF PT AT 1900. PT IS ONLY ALERT TO SELF. PT AWOKE SEVERAL TIMES DURING THE NIGHT BECAUSE HE FORGOT WHERE HE WAS. PT HAD LARGE BM. NO ACUTE EVENTS OVERNIGHT. PT SLEPT MOST OF THE NIGHT, CALL LIGHT IN REACH, BED IN LOWEST POSTION.
--- NOTE | 2020-07-24 18:28 | NUR ---
PATIENT IS PLEASANTLY CONFUSED. VITALS AND CHEM BG'S STABLE AND WNL. THERE HAVE BEEN NO ACUTE CHANGES TO REPORT OF AT THIS TIME. WILL CONTINUE TO MONITOR AND PROVIDE CARE NEEDED.
--- NOTE | 2020-07-25 04:41 | NUR ---
SHIFT SUMMARY ASSUMED CARE OF PT AT 1900. PT IS A/OX1.HEART SOUNDS REGULAR, LUNG SOUNDS DIMINISHED. PT WAS SLEEPING UPON ASSESSMENT AND SLEPT T/O THE NIHGT. CATHETER DRAINING CLEAR YELLOW URINE. PT WAS INCONTINENT OF BM. PT UPSET WHEN HAVING FINGER STICK FOR GLUCOSE MONITORING. PT HASNT NEEDED COVERAGE SINCE ARRIVL ON UNIT, WILL ASK DAYSHIFT NURSE TO TALK WITH DR ABOUT CHANGING TO HS FOR NIGHTLY LANTUS. NO ACUTE EVENTS DURING THE NIGHT. CALL LIGHT IN REACH, BED IN LOWEST POSTION.
--- NOTE | 2020-07-25 19:30 | NUR ---
SHIFT SUMMARY: NO ACUTE CHANGES TO REPORT THIS SHIFT. PT A&O X1; CALM AND COOPERATIVE WITH CARE. CHRONIC MILLER IN PLACE; PATENT & DRAINING. ASPIRATION PRECAUTIONS; MEDS IN APPLESAUCE; PT UPRIGHT FOR ORAL INTAKE. MEDICALLY STABLE; AWAITING PLACEMENT. REPORT GIVEN TO ONCOMING RN.
--- NOTE | 2020-07-26 04:47 | NUR ---
SUPERVISOR PAPER COATING SUMMARY NO ACUTE CHANGES NOTED TO PATIENT THIS SHIFT. A&OX1, ABLE TO MAKE NEEDS KNOWN. PLEASANT AND COOPERATIVE TO CARE. NO C/O PAIN OR ANY DISCOMFORT THIS SHIFT. CHRONIC MILLER CATH DRAINING CLEAR YELLOW URINE. WILL CONTINUE TO MONITOR PATIENT. WILL REPORT TO ONCOMING RN.
--- NOTE | 2020-07-26 19:28 | NUR ---
SHIFT SUMMARY: NO ACUTE CHANGES TO REPORT THIS SHIFT. PT HX CVA & DEMENTIA; A&O X1; CALM AND COOEPRATIVE WITH CARE. NO C/O PAIN THIS SHIFT. CHRONIC MILLER IN PLACE (CHANGED 07/02); PATENT & DRAINING. MEDICALLY STABLE; AWAITING PLACEMENT. REPORT GIVEN TO ONCOMING RN.
--- NOTE | 2020-07-27 05:10 | NUR ---
RESERVOIR ENGINEERING MANAGER SUMMARY NO ACUTE CHANGES NOTED TO PATIENT THIS SHIFT. PATIENT A&OX1, PLEASANT AND COOPERATIVE TO CARE. NO C/O PAIN OR ANY DISCOMFORT THIS SHIFT. CHRONIC MILLER IN PLACE, PATENT AND DRAINING WELL. BED ALARM IN PLACE, BED AT LOWEST POSITION. CALL LIGHT WITHIN REACH. WILL CONTINUE TO MONITOR PATIENT. WILL REPORT TO ONCOMING RN.
[2020-07-27 12:19] LABS: Source, Urine Catheter
[2020-07-27 12:32] LABS: Appearance, Urine Clear (Clear); Bilirubin, Urine Neg (Neg); Blood, Urine 4+ (Neg); Color, Urine Yellow (P-Yellow); Glucose Qualitative, Urine 3+ (Neg); Ketones, Urine 2+ (Neg); Leukocyte Esterase, Urine 2+ (Neg); Nitrite, Urine Neg (Neg); Protein, Urine 2+ (Neg); Urobilinogen, Urine 1+ (Normal)
[2020-07-27 12:47] LABS: Bacteria Few /hpf; Squamous Epithelial Cells Rare /hpf (Few)
[2020-07-27 12:48] LABS: Mucus Light (0-Heavy)
--- NOTE | 2020-07-27 16:40 | NUR ---
SHIFT SUMMARY PT AOX1. PT CONFUSED AT TIMES. PT IS CALM AND COOPERATIVE. ON DYSPHAGIA PRECAUTIONS; ON ROOM AIR; NO TELE. NEW MILLER WAS PLACED THIS MORNING; TOLERATED WELL- MILLER IS DRAINING AND PATENT. NO C/O PAIN, CP, OR SOB. NO OTHER ACUTE CHANGES AT THIS SHIFT. BED IS IN THE LOWEST POSITION; CALL LIGHTS WITHIN REACH AND WILL CONT MONITOR UNTIL THE NEXT SHIFT.
--- NOTE | 2020-07-28 04:22 | NUR ---
SHIFT SUMMARY ASSUMED CARE OF PT AT 1900. PT IS ALERT BUT NOT ORIENTED. PT SLEPT THROUGH THE ASSESSMENT AND MOST OF THE NIGHT. HEART SOUNDS REGULAR, LUNG SOUNDS CLEAR. PT WAS INCONTINENT DURING THE NIGHT. NO ACUTE EVENTS DURING THE NIGHT. CALL LIGHT IN REACH, BED IN LOWEST POSTION, BED ALARM ON.
--- NOTE | 2020-07-28 16:18 | NUR ---
SHIFT SUMMARY PT AOX1 TO SELF. ON ROOM AIR; NO TELE. PT HAS CHRONIC MILLER DRAINING AND PATENT. NO C/O PAIN, N&V AT THIS SHIFT. NO OTHER ACUTE CHANGES AT THIS SHIFT. BED ALARM ON; BED IS IN THE LOWEST POSITION; CALL LIGHT WITHIN REACH AND WILL CONT MONITOR.
--- NOTE | 2020-07-29 04:08 | NUR ---
SHIFT SUMMARY ASSUMED CARE OF PT AT 1900. PT IS ALERT BUT NOT ORIENTED. HEART SOUNDS REGULAR, LUNG SOUNDS CLEAR, DENIES ANY CHANGES IN CONDITION. PT CATHETER DRAING CLEAR YELLOW URINE. NO ACUTE CHANGES, PT SLEPT T/O THE NIGHT. CALL LIGHT IN REACH, BED IN LOWEST POSTION.
--- NOTE | 2020-07-29 07:42 | NUR ---
07/29/20 0700 wake watching tv this am no complaints except he couldnt here the TV sound turned up and pt is happy
--- NOTE | 2020-07-29 18:14 | NUR ---
SHIFT SUMMARY PATIENT DENEIS PAIN, NAUSEA, AND SHORTNESS OF BREATH. PATIENT UP TWO ASSIST STAND PIVOT TO CHAIR. MILLER PATENT AND DRAINING. PATIENT WATCHING TV MOST OF SHIFT. FEED ASSIST. PLACEMENT NEEDED.
--- NOTE | 2020-07-30 07:07 | NUR ---
07/30/20 1261 PT AWAKENED FOR REPOSITIONING AND ROUNDS CHECKS. ATTENDS BRIEF IS DRY. MILLER CATH INTACT AND DRAINING WELL. REPOSITIONED Q 2 HOURS WITH PILLOWS. RN STRONGLY ENCOURAGE ORAL INTAKE AND PT TOOK FEW SIPS OF APPLE JUICE NOW. PT HAS BEEN REFUSING CARE BUT RN INSISTED AND IT WAS DONE PER PROTOCOL.
--- NOTE | 2020-07-30 18:07 | NUR ---
SHIFT SUMMARY PT RESTING QUIETLY AT START OF SHIFT. WOKE EASILY FOR CARE. MEDS ADMINISTERED WHOLE IN APPLESAUCE; TOLERATED WELL. PT WANTING TO GO HOME TODAY, GETTING AGITATED AT HAVING TO STAY IN HOSPITAL. PT UNABLE TO GO HOME; WAITING PLACEMENT. PT ATTEMPTED TO GET OOB SEVERAL TIMES SETTING BED ALARM OFF. PT FINALLY AGREED TO SIT IN RECLINER AT BS FOR A WHILE. SPEECH TX HERE AGAIN TODAY TO RE-EVALUATE PT'S SWALLOWING. DIET CHANGED TO [facility] SOFT; PT WILL BE EVALUATED WHILE EATING FOR POCKETING FOOD. ETHNOARCHAEOLOGY PROFESSOR ASSISTING PT WITH EATING PT IS TOO WEAK TO FEED HIMSELF. MILLER TO GRAVITY FOR RETENSION; PATENT AND DRAINING CL YELLOW. BED AND CHAIR ALARMS USED FOR SAFETY. CALL LT IN REACH.
--- NOTE | 2020-07-31 05:19 | NUR ---
07/31/20 0510 PT SLEPT WELL THIS SHIFT. VITALS STABLE. STILL REFUSES TO DRINK MUCH AND WHEN ASKED ABOUT TURNING HE STATES,"NO!" STAFF STILL REPOSITION Q 2-3 HOURS. MILLER PATENT AND DRAING WELL. DENIES ANY PAIN.
--- NOTE | 2020-07-31 17:58 | NUR ---
SHIFT SUMMARY PT AOX1 TO SELF ONLY; NO C/O PAIN; N&V OR SOB. PT HAS CHRONIC MILLER DRAINING AND PATENT; VSS. PT IS A 2P MAX ASSIST. NO OTHER ACUTE CHANGES AT THIS SHIFT. BED ALARM ON; BED IS IN THE LOWEST POSITION;CALL LIGHTS WITHIN REACH AND WILL CONT MONITOR.
--- NOTE | 2020-08-01 05:54 | NUR ---
FLIGHT TECHNICIAN SUMMARY Gopal slept almost all night only briefly waking during vital checks and repositioning. No complaints or indications of discomfort overnight. Luu cath draining clear yellow urine
--- NOTE | 2020-08-01 15:53 | NUR ---
SHIFT SUMMARY PT AOX1 TO SELF ONLY; 2P MAX ASSIST. CHRONIC MILLER IS DRAINING AND PATENT. NO COMPLAINTS OF PAIN, N&V. NO CP OR SOB. NO OTHER ACUTE CHANGES AT THIS SHIFT. BED IS IN THE LOWEST POSITION; CALL LIGHTS WITHIN REACH AND WILL CONT MONITOR.
--- NOTE | 2020-08-02 04:17 | NUR ---
TRUCK CLEANER SUMMARY Marizol was quite active before HS as he tried three times to get OOB. He refused his senna, but took his colace with honey thick cranberry juice. TYlenol and melatonin worked well to help marizol get a good nights sleep. No complaints of pain or discomfort overnight
--- NOTE | 2020-08-02 15:28 | NUR ---
SHIFT SUMMARY PT IS A/O TO SELF AT BASELINE. HE HAS NO C/O PAIN OR DISCOMFORT. MILLER IS PATENT. HE REMAINS A X 2 ASSIST TO GET UP IN THE CHAIR FOR MEALS AND TO BE RE-POSITIONED. CARE MANAGEMENT HAS BEEN WORKING ON PLACEMENT FOR HIM. HE CAN MAKE HIS NEEDS KNOWN AT TIMES VERBALLY BUT DOES NOT USE HIS CALL LIGHT. HIS BED ALARM IS ON FOR SAFETY AND HIS BED IS IN THE LOW POSITION.
--- NOTE | 2020-08-03 04:37 | NUR ---
IMPROVEMENT ANALYST SUMMARY ALERT AND ORIENTED TO SELF ONLY. APPEARED TO SLEEP T/O MOST OF SHIFT. DENIED PAIN. VSS. NO ACUTE CHANGES AT THIS TIME. BED IN LOWEST POSITION WITH CALL LIGHT IN REACH. WILL CONTINUE TO MONITOR AND REPORT TO ONCOMING RN.
--- NOTE | 2020-08-03 18:18 | NUR ---
ALERT TO SELF AND LOCATION. TURNED Q 2 HOURS. ASSISTED W/MEALS. COOPERATIVE. UNLABORED RESPIRATIONS. DENIES PAIN. WCTM
--- NOTE | 2020-08-04 04:17 | NUR ---
TEAM MANAGER SUMMARY ALERT AND ORIENTED TO SELF ONLY. APPEARED TO SLEEP T/O SHIFT. VSS. NO ACUTE CHANGES AT THIS TIME. BED IN LOWEST POSITION WITH CALL LIGHT IN REACH. WILL CONTINUE TO MONITOR AND REPORT TO ONCOMING RN.
--- NOTE | 2020-08-04 11:38 | NUR ---
PER DR.KHAN CALDWELL TO CHANGE COLACE LIQUID TO PILL FORM.
--- NOTE | 2020-08-04 14:49 | NUR ---
was lying on floor, had been sitting in chair with alarm pad on, indicated with hand motions that he slid to floor, changed out pad since it did not sound alarm, denied pain, no s/s of injury noted, assisted back into bed by two staff members, has continued to deny any pain or other negative effects of position change, tried to call sisters listed in system, one stated number was invalid and the other was to a business am, due to hippa concerns left no message, informed and tianna nurse of position change, will continue to monitor and will pass on in shift report, currently enjoying watching racing on tv, vitals
--- NOTE | 2020-08-04 18:45 | NUR ---
continues to require attention, pushes call light frequently and sets off bed alarm, cooperative with care, takes most prescribed medication if given appropiatly, call light in reach, watching tv, food and fluid restricted due top choaking hazard, will continue to monitor, treat and encourage until share sbar report with pt and noc staff
--- NOTE | 2020-08-05 04:29 | NUR ---
GROUP BILLING COORDINATOR SUMMARY NO ACUTE CHANGES NOTED TO PATIENT THIS SHIFT. A&O TO SELF. PLEASANTLY CONFUSED, REDIRECTABLE. COOPERATIVE TO CARE. NO C/O PAIN OR ANY DISCOMFORT THIS SHIFT. NO SELF TRANSFERRING ATTEMPTS NOTED THIS SHIFT. NO C/O SOB, N&V. FALL PRECAUTIONS IN PLACE, BED ALARM ON. CALL LIGHT WITHIN REACH. AWAITING PLACEMENT. WILL CONTINUE TO MONITOR PATIENT. WILL REPORT TO ONCOMING RN.
--- NOTE | 2020-08-05 18:55 | NUR ---
SHIFT SUMMARY PT UP TO RECLINER CHAIR FOR PART OF DAY TODAY WITH 2 PERSON ASSIST. SCOOTED HIMSELF AROUND FRQUENTLY AND NEEDED REPOSITIONING. HAS DENIED PAIN WHENEVER ASKED. NO CHANGE DURING THE DAY.
--- NOTE | 2020-08-06 04:20 | NUR ---
DIRECTOR SUPPLIER QUALITY SUMMARY NO ACUTE CHANGES NOTED TO PT THIS SHIFT. PT A&0X2, ABLE TO MAKE NEEDS KNOWN. PLEASANT AND COOPERATIVE TO CARE. NO C/O PAIN OR ANY DISCOMFORT THIS SHIFT. NO ATTEMPTS OF SELF TRANSFERRING NOTED. FALL PRECAUTIONS IN PLACE, BED ALARM ON, NON SKID SOCKS IN PLACE. AWAITING PLACEMENT. WILL CONTINUE TO MONITOR PT. WILL REPORT TO ONCOMING RN.
--- NOTE | 2020-08-06 18:56 | NUR ---
SHIFT SUMMARY PATIENT DENIES PAIN, NAUSEA, AND SHORTNESS OF BREATH. PATIENT UP 2MAX STAND PIVOT TO CHAIR. PATIENT SLOW TO RESPOND TO QUESTIONS. PATIENT SPOKE WITH DAUGHTER VIA PHONE TODAY. DISCHARGE PENDING PLACMENT.
--- NOTE | 2020-08-07 05:49 | NUR ---
LICENSED BONDSMAN SUMMARY Gopal was very sullen appearing last night. Didn't want to take any pills at and told me to come back later. Hhen I arrived back in his room, Gopal appeared to be fast asleep, only when I asked him to breath deeply so I could listen to his lungs, he did just that. After that, I told him i was going to administer a lovenox shot, and Gopal woke right up. He took all meds without hesitation. This RN sat with the patient for a while and patient again drifted off to sleep for the rest of the night.
--- NOTE | 2020-08-07 16:24 | NUR ---
SHIFT SUMMARY PATIENT DENIES PAIN, NAUSEA, AND SHORTNESS OF BREATH. PATIENT UP TO CHAIR BRIEFLY TODAY, 2 MAX STAND PIVOT. PATIEN EATING AND DRINKING WELL. PATIENT REQUIRES SUPERVISION/SET UP ONLY DURING MEALS. PENDING PLACEMENT.
--- NOTE | 2020-08-08 18:24 | NUR ---
NO ACUTE CHANGES. PT AWAITING PLACEMENT. CALL LIGHT WITHIN REACH. PT CONFUSED BUT EASILY REDIRECTABLE. BED ALARM ON.
--- NOTE | 2020-08-09 03:36 | NUR ---
THERAPEUTIC SPECIALIST SUMMARY PT HAS HAD NO ACUTE CHANGES TONIGHT BUT HAS NOT ATTEMPTED TO GET OUT OF BED THIS SHIFT. PT DENIED ANY PAIN OR NAUSEA SAYING THAT HE JUST WANTED TO GET SOME SLEEP TONIGHT. PT IS SLEEPING COMFORTABLY W CALL LIGHT WITHIN REACH.
--- NOTE | 2020-08-09 18:12 | NUR ---
NO ACUTE CHANGES . PT WILL WORK WITH PT TO INCREASE STRENGTH IN THE HOPES THAT HE CAN BE ACCEPTED AT A CARE FACILITY. AT THIS TIME PT IS A MAX 2 ASSIST AND REQUIRES ASSISTANCE WITH TRANSFERS. PT IS COMPLIANT WITH CARES AND FRIENDLY WITH STAFF.
--- NOTE | 2020-08-10 05:22 | NUR ---
SHIFT SUMMARY: VSS. AFEB. AAOX2. OFTEN YELLS OUT, "HELLO" RATHER THAN USING CALL BUTTON. FORGETFUL. BED ALARM ON. F/C PATENT AND DRAINING CLEAR RAYMON COLORED URINE. URETHRA SPLIT AND BLEEDING ALONG PENIS, TENDER BUT WITHOUT ERYTHEMA. SLEPT MINIMALLY TONIGHT. NO ACUTE CONCERNS. WILL CONT TO MONITOR.
--- NOTE | 2020-08-10 16:08 | NUR ---
SUMMARY PT IS A/O X1-2, HX DEMENTIA. CURRENT DX SEPSIS RESOLVED HE IS AWAITING MEMORY CARE PLACEMENT. PHYTHER IN FOR RE-EVAL TODAY, STATE PT CONTINUES 2 ASSIST, WEAK UNSTEADY GAIT, POOR BALANCE. HX CVA. PT DEMONSTRATES CONFUSION, @ X'S ATTEMPTS OOB W/O ASSIST, HX FALLS, USING BED & CHAIR ALARMS. HE @ X'S IS BUSY, RESTLESS REACHING, PULLING @ LINES. REQUIRES REDIRECT FROM PULLING @ MILLER CATH. URINE IS CLOUDY YELLOW. HE REQUIRES ASSIST w MEALS/FLUIDS. HAS BEEN UP IN CHAIR FOR MEALS. SUPERVISOR PASTE PLANT PROVIDE BEDBATH. VSS.
--- NOTE | 2020-08-11 05:21 | NUR ---
SHIFT SUMMARY: VSS. AFEB. AAOX1. UNABLE TO STATE YEAR OR LOCATION. SLOW TO RESPOND. DENIES PAIN. F/C PATENT AND DRAINING CLEAR RAYMON COLORED URINE. BED ALARM ON, NO ATTEMPTS TO SELF T/F. SLEPT WELL. NO ACUTE CHANGES.
--- NOTE | 2020-08-11 16:34 | NUR ---
SUMMARY PT IS A/O X1-2, HX DEMENTIA, VERY FORGETFUL. PLEASANT HOWEVER CONFUSED AFFECT. HE IS MEDICALLY STABLE @ THIS TIME, DR & CARE MANAGEMENT TEAM WORKING ON [facility] PLACEMENT. DR WILLSON STATE NO PROGRESS @ THIS TIME. PT HAS BEEN UP IN CHAIR FOR ALL MEALS. WEAK/UNSTEADY GAIT, 2 ASSIST. PEDIGREE TRACER HAS ASSISTED, SUPERVISED MEALS, PT IS ABLE TO FEED HIMSELF w SOME ASSIST. HE HAS BEEN LESS RESTLESS TODAY, HAS SPENT THE DAY WATCHING TV OR NAPPING. VSS.
--- NOTE | 2020-08-12 04:40 | NUR ---
SHIFT SUMMARY: VSS. AFEB. AAOX1. FORGETFUL. BED ALARM ON. F/C PATENT AND DRAINING CLEAR RAYMON URINE TO GRAVITY. DENIES PAIN. PT APPEARED TO HAVE SLEPT WELL TONIGHT. NO NEW CONCERNS AT THIS TIME.
[2020-08-12 05:14] LABS: BASOPHILS ABSOLUTE AUTO 0.05 K/mm3 (0.00-0.23); BASOPHILS PERCENT AUTO 1 % (0-2); EOSINOPHILS ABSOLUTE AUTO 0.19 K/mm3 (0.00-0.68); EOSINOPHILS PERCENT AUTO 3 % (0-6); Hematocrit 30.9 % (37.0-53.0); Hemoglobin 10.1 g/dL (13.5-17.5); IMMATURE GRAN ABSOLUTE AUTO 0.02 K/mm3 (0.00-0.10); IMMATURE GRAN PERCENT AUTO 0 % (0-1); LYMPHOCYTES ABSOLUTE AUTO 2.01 K/mm3 (0.84-5.20); LYMPHOCYTES PERCENT AUTO 32 % (21-46); MONOCYTES ABSOLUTE AUTO 0.62 K/mm3 (0.16-1.47); MONOCYTES PERCENT AUTO 10 % (4-13); Mean Corpuscular HGB 30.2 pg (26.0-34.0); Mean Corpuscular HGB Conc 32.7 g/dL (31.5-36.5); Mean Corpuscular Volume 93 fL (80-100); Mean Platelet Volume 11.2 fL (9.1-12.4); NEUTROPHILS ABSOLUTE AUTO 3.35 K/mm3 (1.96-9.15); NEUTROPHILS PERCENT AUTO 54 % (41-73); Platelet Count 244 K/mm3 (150-400); RDW Standard Deviation 44.1 fL (35.1-46.3); Red Blood Cell Count 3.34 M/mm3 (4.30-5.90); White Blood Cell Count 6.24 K/mm3 (4.00-11.30)
[2020-08-12 05:38] LABS: Alanine Aminotransfer (ALT/SGP 34 U/L (12-78); Albumin, Blood 3.3 g/dL (3.4-5.0); Alk Phos 69 U/L (50-136); Anion Gap 4 mmol/L (6-16); Aspartate Aminotrans (AST/SGOT 7 U/L (12-37); Bilirubin, Total 0.2 mg/dL (0.1-1.0); Blood Urea Nitrogen 34 mg/dL (8-24); Bun/Creatinine Ratio 45.7 (12.0-20.0); CO2, Blood 27 mmol/L (21-32); Chloride, Blood 107 mmol/L (98-108); Creatinine, Blood 0.74 mg/dL (0.60-1.20); Globulin, Blood 3.2 g/dL (2.2-4.0); Glomerular Filtration Rate >60 (60-); Glucose, Blood 133 mg/dL (70-99); Potassium, Blood 4.5 mmol/L (3.5-5.5); Sodium, Blood 138 mmol/L (136-145); Total Protein, Blood 6.5 g/dL (6.4-8.2)
--- NOTE | 2020-08-12 15:37 | NUR ---
SHIFT SUMMARY PT IS A/O TO 2 AT BASELINE. HE HAS NO C/O PAIN OR DISCOMFORT. HIS MILLER IS PATENT AND DRAINING YELLOW URINE. HE IS A X 1 ASSIST FROM THE BED TO THE CHAIR AND THE ROBOTIC MAINTENANCE TECHNICIAN HAS HAD HIM UP TO THE CHAIR FOR MEALS. PT CONTINUES TO AWAIT PLACEMENT. HE RANDOMLY USES HIS CALL LIGHT BUT IS ABLE TO MAKE HIS NEEDS KNOWN WHEN ASKED. HES RESTING IN BED WATCHING TV.
--- NOTE | 2020-08-13 17:36 | NUR ---
SHIFT SUMMARY EREN HAD A SLIGHT HEADACHE THIS MORNING RELIEVED BY TYLENOL. GOT UP TO A CHAIR TODAY WITH A01 AND GAIT BELT FOR MOD ASSIST, REQUIRING LOTS OF PROMPTING AND TIME. MOSTLY ORIENTED, EXCITED ABOUT POSSIBLY GETTING OUT OF THE HOSPITAL ON WEDNESDAY. MILLER PATENT AND DRAINING, MILLER CARE DONE. TOOK MEDS PRESCRIBED ONE AT A TIME IN PUDDING WITH NO S/S ASPIRATION, SWALLOWED EASILY. ASPIRATION PRECAUTIONS FOLLOWED, PT FULLY UPRIGHT FOR PO INTAKE, CHIN TUCKED, NO STRAWS GIVEN. WCTM
--- NOTE | 2020-08-14 17:55 | NUR ---
SHIFT SUMMARY EREN SOMEWHAT AGITATED THIS SHIFT, WAS SURE HE WAS SUPPOSED TO LEAVE TODAY. REORIENTED TO ZOOM CALL IN A.M. WORKED WITH PT. HAD BM ON BSC. AO1 TO TRANSFER WITH PT. ASP PRECAUTIONS FOLLOWED, PT HAD PILLS WHOLE 1 AT A TIME WITH PUDDING. CBGS, MILLER PATENT AND DRAINING. URINE LEAKAGE NOTED AROUND CATHETER X1 THIS SHIFT, THE REST OF THE SHIFT HIS BRIEF WAS C/D/I. DENIED PAIN. WCTM
--- NOTE | 2020-08-15 06:00 | NUR ---
PT as per last 3 nights about 1.5 hour period of high fall risk behaviors then he settles in to sleep soundly rest of night. Fall precautions in place, bed alarm side rails x 3 & close observation to prevent falls. Granados patent PT removes cath secure but does not pull chronic granados. Needs fed or 1 to 1 supervision for oral intake. He has zoom assessment with possible placement facility at 10 am today. [place] No agression. Cooperative but needs assist with ADLS, Toileting, bed mobility, poor historian, hx of dementia, cooperative with meds & cares. tylenol & melatonin given at HS to promote rest. Crushable meds given in small amt of omar.
--- NOTE | 2020-08-15 17:29 | NUR ---
SHIFT SUMMARY PATIENT DENIES PAIN, NAUSEA, AND SHORTNESS OF BREATH. PATIENT HAD ZOOM INTERVIEW WITH FACILITY IN [place]. TRIALING MILLER REMOVAL TODAY, PATIENT HAS VOIDED ONCE POST MILLER REMOVAL. NEW ORDERS FOR ORAL GLUCOSE CONTROL MEDICATION FACILTY DOES NOT DO SLIDING SCALE INSULIN. CARE MANAGEMENT FOLLOWING UP WITH FACILITY.
--- NOTE | 2020-08-16 04:19 | NUR ---
SHIFT SUMMARY NO ACUTE CHANGES THIS SHIFT, HAS BEEN VOIDING LG AMTS IN ATTENDS, SLEPT T/O THE NIGHT & SLEEPING AT THIS TIME, CALL LIGHT IN REACH, WILL CONT TO MONITOR UNTIL REPORT GIVEN TO DAY RN.
[2020-08-16 04:45] LABS: BASOPHILS ABSOLUTE AUTO 0.05 K/mm3 (0.00-0.23); BASOPHILS PERCENT AUTO 1 % (0-2); EOSINOPHILS ABSOLUTE AUTO 0.22 K/mm3 (0.00-0.68); EOSINOPHILS PERCENT AUTO 3 % (0-6); Hematocrit 31.8 % (37.0-53.0); Hemoglobin 10.3 g/dL (13.5-17.5); IMMATURE GRAN ABSOLUTE AUTO 0.01 K/mm3 (0.00-0.10); IMMATURE GRAN PERCENT AUTO 0 % (0-1); LYMPHOCYTES ABSOLUTE AUTO 2.02 K/mm3 (0.84-5.20); LYMPHOCYTES PERCENT AUTO 31 % (21-46); MONOCYTES ABSOLUTE AUTO 0.69 K/mm3 (0.16-1.47); MONOCYTES PERCENT AUTO 10 % (4-13); Mean Corpuscular HGB Conc 32.4 g/dL (31.5-36.5); Mean Corpuscular Volume 93 fL (80-100); NEUTROPHILS ABSOLUTE AUTO 3.62 K/mm3 (1.96-9.15); NEUTROPHILS PERCENT AUTO 55 % (41-73); Platelet Count 245 K/mm3 (150-400); RDW Coefficient Variation 12.8 % (11.7-14.2); RDW Standard Deviation 43.8 fL (35.1-46.3); Red Blood Cell Count 3.43 M/mm3 (4.30-5.90); White Blood Cell Count 6.61 K/mm3 (4.00-11.30)
[2020-08-16 05:23] LABS: Alanine Aminotransfer (ALT/SGP 33 U/L (12-78); Albumin, Blood 3.4 g/dL (3.4-5.0); Albumin/Globulin Ratio 1.1 (0.8-1.8); Alk Phos 64 U/L (50-136); Anion Gap 5 mmol/L (6-16); Aspartate Aminotrans (AST/SGOT 11 U/L (12-37); Bilirubin, Total 0.2 mg/dL (0.1-1.0); Blood Urea Nitrogen 32 mg/dL (8-24); Bun/Creatinine Ratio 35.3 (12.0-20.0); CO2, Blood 26 mmol/L (21-32); Calcium, Blood 9.1 mg/dL (8.5-10.1); Chloride, Blood 107 mmol/L (98-108); Creatinine, Blood 0.91 mg/dL (0.60-1.20); Globulin, Blood 3.2 g/dL (2.2-4.0); Glomerular Filtration Rate >60 (60-); Glucose, Blood 94 mg/dL (70-99); Potassium, Blood 4.3 mmol/L (3.5-5.5); Sodium, Blood 138 mmol/L (136-145); Total Protein, Blood 6.6 g/dL (6.4-8.2)
--- NOTE | 2020-08-16 16:48 | NUR ---
SHIFT SUMMARY PT AOX1. VSS, PT IS RA, NO TELE. NO C/O PAIN, N&V. PT IS VERY CONFUSED TODAY; AND KEEP TRYING TO GET OUT OF BEDX3; CONSIDERING TO BE PLACE IN SCU. OTHERWISE, NO ACUTE CHANGES AT THIS SHIFT. BED ALARM IS ON; CALL LIGHTS WITHIN REACH; CONTINUOUS MONITORING REQUIRED DUE TO HIGH FALL RISK .
--- NOTE | 2020-08-16 19:18 | NUR ---
CAMERA VERIFIED VERIFIED THAT PT IS ON 348 IS ON CAMERA WITH SCU PREPARATION PLANT SUPERVISOR.
--- NOTE | 2020-08-17 04:48 | NUR ---
HYDROELECTRIC MACHINERY MECHANIC SUMMARY PT HAD AN UNEVENTFUL NIGHT SLEEPING ON AND OFF. PT IS VOIDING LARGE AMOUNTS OF INCONTINENT URINE. PT IS VERY PLEASANT AND COOPERATIVE WITH CARE. NO NEW S/S.
--- NOTE | 2020-08-18 07:41 | NUR ---
08/18/20 0600 PT SLEPT WELL. VITALS STABLE AND UNEVENTFUL NIGHT. SLEEPER PILL GIVEN PER PT REQUEST. ATTENDS BRIEFS CHANGED PRN INCONTINENCE.
--- NOTE | 2020-08-18 17:52 | NUR ---
SHIFT SUMMARY PT RESTING QUIETLY AT START OF SHIFT. UP TO CHAIR FOR ALL MEALS. PT ENCOURAGED TO SIT IN CHAIR AFTER EATING FOR A FEW MINUTES. PT CONSISTANTLY WANTING BACK TO BED SOON HE WAS FINISHED. PT BECAME IRRITABLE AND UNCO-OP WITH DELINQUENCY PREVENTION SOCIAL WORKER TODAY, THEN APOLOGIZED. DR HUTCHISON HERE TO SEE PT. NO CHANGES TO PRESENT. PT CONTINUES TO WAIT PLACEMENT. NO C/O. CALL LT IN REACH. BED AND CHAIR ALARMS ON FOR SAFETY.
--- NOTE | 2020-08-19 07:33 | NUR ---
PT known to me from rm 361 continues on blood glucose checks AC HS with no current insulin for me. DC planning for appropriate placement. PT had been at [facility] prior to admission. Luu cath dc 08/15/20. Voids incontient. Cooperative, pleasant, baseline dementia. Aspiration precautions continue. Medicated at HS with tylenol & melatonin. PT did spill his HS scarlet drink on floor as he did in other room. Fall precutions continue.
--- NOTE | 2020-08-19 16:43 | NUR ---
SHIFT SUMMARY NO ACUTE CHANGES T/O SHIFT, A&O TO SELF ONLY. SLOW TO RESPOND AND CONFUSED AT TIMES, BUT RESPONDS TO MOST QUESTIONS APPROPRIATELY. PT STILL ON ASPIRATION PRECAUTIONS, TOLERATED FOOD AND MEDS WELL. TOOK MEDS WHOLE IN APPLESAUCE ONE AT A TIME. SAT UP IN CHAIR FOR ALL MEALS. PT HAS A MEETING TOMORROW VIA VIDEO CHAT REGARDING PLACEMENT. PT IS CURRENTLY LAYING IN BED WATCHING TV, CALL LIGHT WITHIN REACH.
--- NOTE | 2020-08-20 05:49 | NUR ---
PT continues to sleep well after melatonin & tylenol given at HS. PT had granados cath dc on 08/15/20 & is incontinent of bowel & bladder. PT has some behaviors where he throws liquids on floor around hs consistantly. He also presses call salomon repeatedly for about a hour period of time prior to falling asleep. PT off insulins. ac hs sliding scale between 130s & 150s.
--- NOTE | 2020-08-20 17:17 | NUR ---
SHIFT SUMMARY NO ACUTE CHANGES T/O SHIFT, A&O TO SELF ONLY. PT WAS CALM AND COOPERATIVE T/O THE SHIFT WELL. PT UP TO CHAIR FOR MEALS AND TOLERATED FOODS AND MEDICATIONS WELL. PT IS STILL INCONTINENT OF STOOL AND URINE. CBG RUNNING BETWEEN 115-152. PT CURRENTLY LAYING IN BED WATCHING TV.
--- NOTE | 2020-08-21 00:21 | NUR ---
PT able to use call salomon & pushes it multiple times when he wants to see staff. He seems more anxious & concerned about not being able to go home. He had a zoom interview on potential placement. He has dementia diagnosis & has poor memory. Spent time with PT and offered oral intake. He was able to drink ensure & feed self HS snack yogurt with effort. He is off insulin & blood glucose better contreooled on oral antihyperglycemic. PT had chronic granados dc 08/15/20 & is currently incontinent & currently is not interested in toileting or urinal use. He has come along way progressing with swallow & able to feed self with supervision & up in chair or HOB up with aspiration precautions. VSS cooperative with meds whole in applesauce, no straws for liquids. Has extended Family in [employer] Daughters Grandchildren. 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 Worked in [employer]. Regrets for not staying in [employer] or at [employer] job at [employer]. Support offered. Staff need to ask Abdias what he needs as he can communicate but seems to lack insight into toileting & safety. Not unpleasant never attempts to be abusive but he does have a period of about 1.5 hours prior to sleep that he is attention seeking. Melatonin 5 mg at hs helpful for restful night. Sleeps quietly without further disruption until AM. Working with [place] airport planner on safe dc plan. to resist or
--- NOTE | 2020-08-21 17:26 | NUR ---
SHIFT SUMMARY- PT ALERT AND ORIENTED TO SELF AND DATE. PT WAS UP INTO A CHAIR 2P MAX ASSIST FOR THE TRANSFER. PT IS A FEEDER AND HE ATE WELL FOR BREAKFAST AND LUNCH, STILL AWAITING THE ARRIVAL OF DINNER TRAYS. PLAN IS FOR PT TO [facility] [place] PER REPORT FROM EVGENY BARBA, HOPEF[facility] IN THE NEXT WEEK. PT IS PLEASENT AND IS ACCEPTING OF CARES PROVIDED BY STAFF. PT SEEMS PLEASENTLY CONFUSED T/O THE DAY TODAY. PT ON ROOM AIR, CALL LIGHT IN REACH, HE CAN USE THE CALL LIGHT. WILL PASS ALL ON IN REPORT TO NIGHT RN.
--- NOTE | 2020-08-22 03:59 | NUR ---
CUSTOMER EXPERIENCE PROFESSIONAL SUMMARY NO NEW S/S THIS SHIFT. PT IS ALERT WITH MOMENTS OF CONFUSION BUT OVERALL THE PT IS VERY PLEASANT AND COOPERATIVE. WCTM
--- NOTE | 2020-08-22 18:14 | NUR ---
SHIFT SUMMARY- PT ALERT TO SELF AND . PT PLEASENTLY CONFUSED. PT DOES NOT CALL APPROPRIATELY. PT INCONTINENT, LAST CHANGE BEING DONE AT THIS TIME 1815. SKIN C/D/I. PT CAN REMINICE ABOUT HIS PAST BUT IS OFTEN FORGETFUL AND HE CAN GET FRUSTRATED WHEN HE CAN NOT RECALL THINGS. PT OFTEN WILL CALL OUT AND WHEN STAFF ASK WHAT HE NEEDS HE WILL SAY "ATTENTION." JUST WANTING COMPANY. PT USES THE CALL LIGHT BUT USUALLY ON ACCIDENT. PT ON ROOM AIR, NO IV ACCESS NEEDED. PT HAS DENIED THE NEED FOR ANY PAIN MEDICATION T/O THE DAY.
--- NOTE | 2020-08-23 04:20 | NUR ---
GOVERNMENT CONTRACTS MANAGER SUMMARY PT HAD AN UNEVENT FUL NIGHT HE SLEPT FOR MOST OF THE NIGHT WITH THE CALL LIGHT WITHIN REACH. PT HAD ONE INCONTINENT BOWEL MOVEMENT THAT WAS SOFT AND BROWN. PT WAS VERY PLEASANT W CARE TEAM. SAMANTHA.
--- NOTE | 2020-08-23 17:12 | NUR ---
SHIFT SUMMARY PT A/O X2; PLEASANT AND COOPERATIVE WITH CARE. 2-3 PERSON ASSIST W/FWW AND GB TO THE BSC. HAD A VERY LARGE BM TODAY. GOT UP TO THE RECLINER AND PLACED IN THE DANGELO ONCE THIS SHIFT. VSS; WCTM.
--- NOTE | 2020-08-24 05:35 | NUR ---
SHIFT SUMMARY: VSS. AFEB. AAOX1. UNABLE TO GIVE DATE, LOCATION, OR SITUATION. WHILE AWAKE, SEVERAL ATTEMPTS TO GET UP AND OUT OF BED INDEPENDENTLY. ENCOURAGED PT TO CALL FOR ASSISTANCE, FORGETFUL. BED ALARM ON AND REMOTE CAMERA MONITORING IN PLACE. NO ACUTE CHANGES OVERNIGHT. WILL CONT TO MONITOR.
--- NOTE | 2020-08-24 18:21 | NUR ---
SHIFT SUMMARY PT IS AO TO SELF. PT DENIES PAIN, N/V, SOB. PT IS A MAX 2 ASSIST, MOST LIKELY A LIFT PT. PLAN IS TO DC TO SNF ON 08/27. PT IN BED MOST OF SHIFT. PT IN BED, CALL LIGHT IN REACH, BED IN LOW POSITION.
--- NOTE | 2020-08-25 04:29 | NUR ---
SHIFT SUMMARY: AAOX1. UNABLE TO STATE LOCATION, BUT SAYS "I KNOW" WHEN TOLD WHERE HE IS. PT AGITATED AT START OF SHIFT W/ FREQUENT ATTEMPTS TO GET OOB INDEPENDENTLY. STATES THAT HE IS "SICK OF THIS PLACE" AND "WILL CRAWL OUT OF HERE IF I HAVE TO". REDIRECTED W/ SOME EFFORT. HAS REMAINED ASLEEP FOR MUCH OF THE NIGHT WITH NO FURTHER ATTEMPTS TO INDEPENDENTLY T/F OUT OF BED. BED ALARM ON, BED LOW, CALL BUTTON IN REACH, REMOTE VIDEO MONITORING CONTINUES. PT DENIES PAIN. NO ACUTE CHANGES OVERNIGHT.
--- NOTE | 2020-08-25 17:40 | NUR ---
SHIFT SUMMARY PT AO TO SELF. PT DENIES N/V, PAIN, SOB. PT USING CALL LIGHT FREQUENTLY THIS SHIFT. PT IN CHAIR IN DANGELO X1 THIS SHIFT FOR A CHANGE OF SCENERY. PT IS A 2 PERSON ASSIST WITH GAIT BELT AND WALKER. PT AWAITING PLACEMENT TO [facility]. PT IN BED, CALL LIGHT IN REACH, BED IN LOW POSITION.
--- NOTE | 2020-08-26 05:18 | NUR ---
SHIFT SUMMARY: VSS. AFEB. AAOX1. REPEATEDLY PRESSING CALL BUTTON AND ATTEMPTING TO CRAWL OUT OF BED, SOUNDING BED ALARM AND PROMPTING CALLS FROM REMOTE VIDEO MONITOR. PT EXPRESSES THAT HE IS LEAVING AND IS TIRED OF BEING HERE. SPOKE W/ PT ABOUT HIS DISCHARGE PLAN AND HIS MOOD COMPLETELY TURNED AROUND. HE RELAXED INTO BED AND BECAME COOPERATIVE W/CARES. FELL ASLEEP SHORTLY AFTER RECEIVING HS MEDS AND HAS REMAINED ASLEEP FOR MOST OF THE NIGHT. NO ACUTE CHANGES. WILL CONT TO MONITOR.
--- NOTE | 2020-08-26 18:14 | NUR ---
PT TO BE DISCHARGED 08/28 TO [facility] IN [place]. HAS BEEN COOPERATIVE WITH CARE TODAY, UP TO CHAIR WITH 2 ASSIST. NO ALWAYS EASY TO REDIRECT. NO ACUTE CHANGES NOTED THIS SHIFT, WILL CONTINUE TO MONITOR AND REPORT TO ONCOMING RN
--- NOTE | 2020-08-27 03:58 | NUR ---
SHIFT SUMMARY ALERT, ABLE TO MAKE NEEDS KNOWN. CONFUSION NOTED AT TIMES. COOPERATIVE WITH CARE. NO C/O PAIN/DISCOMFORT. NO ATTEMPTS TO EXIT BED; DOES HOWEVER CALL MULTIPLE TIMES WITHOUT ANY NEEDS. JUST PRESSING BUTTONS HE SAYS. VSS/AFEBRILE. APPEARED TO REST MUCH OF THE SHIFT. NO ACUTE CHANGES NOTED OVERNIGHT. BED REMAINS IN LOWEST POSITION; ALARM ON. CALL LIGHT AND BELONGINGS WITHIN REACH. WCTM. REPORT TO ONCOMING RN.
--- NOTE | 2020-08-27 18:15 | NUR ---
NO ACUTE CHANGES NOTED THIS SHIFT, PLAN IS FOR PT TO DISCHARGE TO [facility] IN [place] TOMORROW. WILL CONTINUE TO MONITOR AND REPORT TO ONCOMING RN
--- NOTE | 2020-08-27 19:10 | NUR ---
ASSUMED CARE RECEIVED REPORT FROM MARQUITA BETHEA. ASSUMED CARE OF PT. RESTING COMFORTABLY AT THIS TIME, NO S/S ACUTE DISTRESS NOTED, RESPS EVEN AND UNLABORED. DENIES NEEDS. CALL LIGHT, POSSESSIONS IN REACH, BED IN LOW POSITION WITH ALARMS ON. WILL CONTINUE TO MONITOR.
--- NOTE | 2020-08-28 04:26 | NUR ---
SHIFT SUMMARY PT HAS HAD NO ACUTE CHANGES IN CONDITION T/O NIGHT, WAS MONITORED EVERY 1-2 HOURS WITH NEEDS MET. VSS, REVIEWED. PT ANTICIPATING D/C TO [facility] TODAY. PT ASLEEP AT THIS TIME, DENIES NEEDS. CALL LIGHT, POSSESSIONS IN REACH, BED IN LOW POSITION WITH ALARMS ON. WCTM, REPORT OFF TO ONCOMING RN.
[2020-08-28] MEDS ORDERED: Prinivil10 MG PO (10:17)
[2020-08-28] MEDS ORDERED: DOCU100 PO (10:18)
[2020-08-28] MEDS ORDERED: GLIP2.5ER PO (10:19)
[2020-08-28] MEDS ORDERED: SENN187 PO (10:20)
[2020-08-28] MEDS ORDERED: MELATONIN5 M1 PO (10:20)
[2020-08-28] MEDS ORDERED: FLOMAX0.4 MG PO (10:21)
--- NOTE | 2020-08-28 12:21 | NUR ---
DISCHARGE NOTE PT LEFT WITH [facility] TO GO TO [facility]. SPOKE TO TIGRE JUÁREZ THERE AND GAVE REPORT. PT TRIED TO GET UP TO GO TO [facility] WITH NURSE ASSIST BUT WAS TOO WEAK. GAVE HIM A LITTLE TIME TO WAKE UP MORE, AND HE WAS A ASSIST OF ONE WITH GAIT BELT AND WALKER TO PIVOT TO CHAIR. INCONT URINE. DENIED PAIN. TOOK MEDS PRESRIBED ONE AT A TIME WITH APPLESAUCE. HAD WHEELCHAIR DELIVERED BY [facility] PRIOR TO LEAVING. THIS WAS SENT WITH TRANSPORTATION [employer]
== END 2020-08-28 12:01 | disposition home or self-care (01) | DRG 698 ==
LOC: ER 18:18 → ERHOLD 21:00 → ICUW 21:00 → MEDS 21:00 → ICUW 23:00 → MEDS 07-04 17:00
PROVIDERS: Emergency Medicine; Family Medicine; Internal Medicine; ADMIT Internal Medicine
PROC: 3E033XZ Introduction of Vasopressor into Peripheral Vein, Percutaneous Approach (ICD-10-PCS; principal; 2020-07-03)
DX: T83.511A Infection and inflammatory reaction due to indwelling urethral catheter, initial encounter (principal); R65.21 Severe sepsis with septic shock; G92 Toxic encephalopathy; A41.81 Sepsis due to Enterococcus; Z79.4 Long term (current) use of insulin; Z79.82 Long term (current) use of aspirin; Z95.1 Presence of aortocoronary bypass graft; Z87.891 Personal history of nicotine dependence; E86.0 Dehydration; E78.5 Hyperlipidemia, unspecified; Z20.828 Contact with and (suspected) exposure to other viral communicable diseases; Z86.73 Personal history of transient ischemic attack (TIA), and cerebral infarction without residual deficits; I10 Essential (primary) hypertension; I95.9 Hypotension, unspecified; I25.10 Atherosclerotic heart disease of native coronary artery without angina pectoris; F03.90 Unspecified dementia, unspecified severity, without behavioral disturbance, psychotic disturbance, mood disturbance, and anxiety; Z95.2 Presence of prosthetic heart valve; R33.9 Retention of urine, unspecified; R13.10 Dysphagia, unspecified; K59.09 Other constipation
CPT/HCPCS: 0202U; 36415; 51702; 71045; 80053; 81001; 82947; 83605; 83735; 85025; 87040; 87077; 87086; 87186; 92526; 92610; 93005; 93010; 94760; 96361-59; 96365-59; 96367-59; 96375-59; 97110; 97112; 97162; 97164; 97165; 97530; 99285-25; A9270; A9270-GY; C1751; J0696; J0713; J1650; J1956; J2405; J2550; J3370; J7030; U0004